=== PATIENT | male | born 1985 | race Two or more races ===

== ENCOUNTER → 2021-07-06 14:55 | Outpatient (BNVA) | payer OTHER, SELFPAY | PROVIDERS: PCP Internal Medicine; Visit Provider Internal Medicine | DX: K62.82 Dysplasia of anus (principal); J45.909 Unspecified asthma, uncomplicated; B20 Human immunodeficiency virus [HIV] disease; Z71.6 Tobacco abuse counseling | CPT/HCPCS: 99202 ==

== ENCOUNTER 2021-07-06 15:39 | Inpatient (IN) | payer OTHER, SELFPAY ==
--- NOTE | ~2021-07-06 | XR_ITS ---
EXAMINATION: XR CHEST CLINICAL INFORMATION: Chest pain COMPARISON: None TECHNIQUE: Frontal view of the chest was obtained. FINDINGS: No significant abnormality is noted involving the heart, lungs, mediastinum, bony thorax or soft tissues. Artifacts from braided hair are noted overlying the left supraclavicular fossa this is felt not to represent subcutaneous emphysema. XR/XR chest 1V IMPRESSION: No acute intrathoracic disease
--- NOTE | ~2021-07-06 | US_ITS ---
EXAMINATION: US VENOUS ULTRASOUND WITH DOPPLER LOWER EXTREMITY, BILATERAL CLINICAL INFORMATION: Positive d-dimer COMPARISON: None TECHNIQUE: Ultrasound of the deep veins is performed from the hip to the calf with compression sonography and color and pulse Doppler assessment. Spectral analysis with color-flow imaging is performed. FINDINGS: RIGHT: There is normal venous compression and respiratory variation and augmented flow. The visualized common femoral vein, superficial femoral vein, profunda femoral vein, popliteal vein, and the trifurcation region shows no evidence of deep venous thrombosis. There is no significant popliteal fossa cyst. LEFT: There is normal venous compression and respiratory variation and augmented flow. The visualized common femoral vein, superficial femoral vein, profunda femoral vein, popliteal vein, and the trifurcation region shows no evidence of deep venous thrombosis. There is no significant popliteal fossa cyst. If the patient's symptoms persist, followup ultrasound in 5 days 7 days might be of value to exclude proximal propagation from a non-visualized calf vein. US/US venous duplex LE BI IMPRESSION: No DVT demonstrated in the bilateral lower extremity.
--- NOTE | ~2021-07-06 | CT_ITS ---
EXAMINATION: CTA CHEST PE STUDY CLINICAL INFORMATION: ob/ cp/ elevated ddimer COMPARISON: Chest x-ray today TECHNIQUE: Prior to contrast administration, noncontrast localization images were obtained. After the administration of 70 mL of Omnipaque 350 IV contrast, contiguous thin slice helical images were obtained through the thorax. Reformatted MIP images in the coronal and sagittal planes were obtained at the acquisition workstation. This CT examination was performed using dose optimization techniques as appropriate, variously including the following: *Automated exposure control *Adjustment of mA and/or kV according to patient size (this includes techniques or standardized protocols for targeted exams where dose is matched to indication/reason for exam; i.e. extremities or head) *Use of iterative reconstruction technique DLP: 296 mGy-cm. FINDINGS: The bolus timing on this study was acceptable for visualization of the pulmonary arterial tree. There is a focal segmental and subsegmental filling defect within the medial right upper lobe with smaller subsegmental filling defects seen in the contralateral left lower lobe pulmonary artery branches. Small pulmonary emboli would be suspected with this appearance. Findings detail at the bases is obscured by respiratory motion artifact. Degraded by respiratory motion at the bases but there is minimal dependent basilar atelectasis. Subtle peripheral airspace disease in the lateral left base and in the anterior aspect of the right upper lobe in the region of the pulmonary emboli. I'm uncertain if this represents underlying areas of small peripheral infarction. No abnormal pulmonary nodules or masses are appreciated. No significant hilar or mediastinal adenopathy. There is no evidence of pleural effusion or pneumothorax. The heart is normal in size. No evidence of ventricular septal bowing or right heart strain. Great vessels are normal. Otherwise the mediastinum is unremarkable. There is no pericardial effusion or pericardial thickening. Limited evaluation of the upper abdominal viscera is unremarkable. CT/CT angio chest PE protocol IMPRESSION: Filling defects within the segmental and subsegmental branches of the right upper lobe as well as subsegmental branches of the left lower lobe with associated airspace changes suggesting pulmonary emboli. The airspace disease in these regions could be due to infection, inflammation or even areas of infarction. VTE: Positive This critical result was discussed with SAMMY Rudolph at 07/06/2021 7:30 PM and it was ascertained that the content and urgency of the report was understood at the time of direct communication.
[2021-07-06 17:03] VITALS: BP 118/85; PULSE 93; RESP 22; TEMP 36.9; O2SAT 98; BMI 23.3
--- NOTE | 2021-07-06 17:29 | ED_ITS ---
HPI - Chest Pain General Chief Complaint: Chest Pain Stated Complaint: sob Time Seen by Provider: 07/06/21 17:29 Source: patient Mode of arrival: ambulatory History of Present Illness HPI narrative: 35-year-old male who reports history of HIV currently on therapy, history of bilateral knee surgery, status post colonoscopy x2 for colon polyps thought to be cancerous he had these removed also status post gastric surgery secondary to gastric ulcers 3 weeks ago who presents with complaint of 2 days of stabbing like chest pain on left side and unable to take a deep breath in. States pain sort of started out of nowhere and has progressively gotten worse. He denies any fever or shortness of breath. MD complaint: chest pain Onset (ago): day(s) Prior episodes: No Relieving factors: nothing Treatment prior to arrival: none Risk Factors Coronary artery disease risk factors: family history of CAD before age 50 Related Data Home Medications Medication Instructions Recorded Confirmed albuterol sulfate 90 mcg/actuation 1 puff PO QID PRN 07/06/21 07/06/21 aerosol inhaler (ProAir HFA) betamethasone dipropionate 0.05 % 1 appl TOPICAL BID PRN 07/06/21 07/06/21 topical cream bictegravir 50 mg-emtricitabine 1 tab PO DAILY 07/06/21 07/06/21 200 mg-tenofovir alafenam 25 mg tablet (Biktarvy) fluoxetine 20 mg capsule 2 cap PO QAM 07/06/21 07/06/21 Allergies Allergy/AdvReac Type Severity Reaction Status Date / Time No Known Allergies Allergy Verified 07/06/21 17:29 Review of Systems Review of Systems: Constitutional: No Weight loss, No Fever, No Chills, No Night Sweats, No Fatigue, No Malaise ENT/Mouth: No Hearing loss, No Ear Pain, No Nasal Congestion, No Sinus Pain, No Hoarseness, No sore throat, No Rhinorrhea, No Swallowing Difficulty Eyes: No Eye Pain, No Swelling, No Redness, No Foreign Body, No Discharge, No Vision Changes Cardiovascular: + Chest Pain, No SOB, No Dyspnea on Exertion, No Orthopnea, No Edema, No Palpitations Respiratory: No Cough, No Sputum, No Wheezing, No Smoke Exposure, No Dyspnea Gastrointestinal: No Nausea, No Vomiting, No Diarrhea, No Constipation, No abdominal Pain, No Hematochezia, No Melena Genitourinary: no irregular bleeding, No Dysuria, No Urinary Frequency, No Hematuria, No Urinary Incontinence, No Urgency, No Flank Pain, No Urinary Flow Changes, No Hesitancy Musculoskeletal: No joint pain, No Myalgias, No Joint Swelling Skin: No Skin Lesions, No rash Neuro: No Weakness, No Numbness, No Paresthesias, No Loss of Consciousness, No Dizziness, No Headache Psych: No Social Issues Heme/Lymph: No Bruising, No Bleeding,No Lymphadenopathy Endocrine: No Polyuria, No Polydipsia, No Temperature Intolerance Yes all other systems are reviewed and are negative [facility] Past Medical History Medical History Colon cancer Colon polyps GERD (gastroesophageal reflux disease) HIV (human immunodeficiency virus infection) Social History Social History Household Members: Family Housing: House Do you presently have visiting nurse or other home services: No Patient Tobacco Use Status: Current everyday Tobacco user Tobacco use type: Cigarette Cigarette Packs Per Day: 0.5 Cigarettes Per Day: 10.0 Use of substances other than those prescribed or required for medical reasons: Yes Substance Use Type: Marijuana Substance Use Frequency: Daily Last Used Substance: Hours (ago) Last Used Substance Other:: this morning Currently Displaying Signs/Symptoms of Drug Intoxication Withdrawal: No Have you been hit, kicked, punched, or otherwise hurt by someone within the past year? If so, by whom?: No Do you feel safe in your current relationship?: No Current Relationship Is there a partner from a previous relationship who is making you feel unsafe now?: No Are you made to feel afraid or neglected: No Advance Directives: No Advance Directives Information Provided: No Do you have thoughts of harming others: None Do you have a plan to hurt others: No Plan Recently lost weight without trying: No Eating poorly because of decreased appetite: Yes Nutrition Risks: No Nutritional Risk Physical Exam Vital Signs: Vital Signs: Last Vital Signs Temp 98.3 F 07/06/21 23:36 Pulse 77 07/06/21 23:36 Resp 18 07/06/21 23:36 BP 123/81 07/06/21 23:36 Pulse Ox 97 07/06/21 23:36 Body Mass Index 23.3 Const: General: cooperative and healthy appearing; No acute distress or intoxicated appearing Nutritional Appearance: average body habitus Orientation/consciousness: patient oriented x3 HENMT: Head: Yes normal to inspection Ears: hearing grossly normal bilaterally Eyes: General: appearance normal, both eyes and all related structures Visual Castelan: normal visual castelan by confrontation Neck: Neck: Yes normal visual inspection, No positive Brudzinski's sign, No positive Kernig's sign and No tender Thyroid: Thyroid normal Chest: Chest palpation & inspection: normal inspection of the chest Resp: Effort & Inspection: normal respiratory effort Cardio: Jugular venous distension: no JVD Rate: regular rate Rhythm: regular rhythm Heart sounds: S1 normal heart sound present and S2 normal heart sound present GI: Inspection: Yes normal to inspection Percussion: Yes normal to percussion Auscultation: normal bowel sounds : General: Yes no CVA tenderness Back/Spine/Pelvis: Back: no CVA tenderness Skin: General skin exam: no rashes or lesions noted Neuro: General: patient oriented x3 Extrem: General: Yes normal to inspection Course Reevaluation(s) Reevaluation #1: Appears relatively uncomfortable pain reproducible palpation to the left pectoralis muscle region however status post surgery. D-dimer slightly bumped the CTA done of the chest rule out PE shows Filling defects within the segmental and subsegmental branches of the right upper lobe as well as subsegmental branches of the left lower lobe with associated airspace changes suggesting pulmonary emboli. The airspace disease in these regions could be due to infection, inflammation or even areas of infarction. ? MDM - Chest Pain Medical Records Data Attestation: I reviewed the patient's medical records. Lab Data Attestation: I reviewed the patient's lab results. Result diagrams: 07/06/21 18:05 07/06/21 18:04 Labs: Lab Results 07/06/21 07/06/21 07/06/21 Range/Units 18:04 18:04 18:04 WBC (4.8-10.8) X10*3/uL RBC (4.60-5.80) X10*6/uL Hgb (14.0-18.0) g/dl Hct (42-52) % MCV (80-98) fL MCH (27.0-33.0) pg MCHC (31.0-36.0) g/dl RDW (11.0-16.0) % Plt Count (160-400) X10*3/uL MPV (9.4-12.4) fL Immature Gran % (Auto) (0.0-0.4) % Neut % (Auto) (45-73) % Lymph % (Auto) (20-40) % [place] % (Auto) (2-11) % Eos % (Auto) (0-4) % Baso % (Auto) (0-2) % Lymph # (Auto) (1.2-4.9) X10*3/uL [place] # (Auto) (0.1-1.2) X10*3/uL Eos # (Auto) (0.0-0.4) X10*3/uL Baso # (Auto) (0.0-0.2) X10*3/uL Abs Immat Gran (auto) (0.00-0.03) X10*3/uL Absolute Neuts (auto) (2.0-8.3) X10*3/uL Absolute Nucleated RBC (0.0-0.012) X10*3/uL Nucleated RBC % (auto) (0.0-0.2) /100WBC Smear Tech's Comments PT 13.9 H (9.9-13.0) SEC INR 1.2 H (0.9-1.1) APTT 36.7 (24.1-38.0) SEC D-Dimer 356 NG/ML Sodium 136 (135-145) mmol/L Potassium 4.1 (3.3-5.1) mmol/L Chloride 102 (96-108) mmol/L Carbon Dioxide 21 L (22-29) mmol/L Anion Gap 17 (12-20) BUN 10 (9-16) mg/dL Creatinine 0.84 (0.5-1.4) mg/dL Estim Creat Clear Calc 133.4 Estimated GFR > 60 Random Glucose 98 (60-115) mg/dL Calcium 9.9 (8.4-10.2) mg/dL Total Bilirubin 1.4 H (0.0-1.0) mg/dL AST 24 (5-37) U/L ALT 23 (0-40) U/L Alkaline Phosphatase 117 (39-117) U/L Troponin I High Sens (<3.5-35.0) ng/L Total Protein 7.5 (6.5-8.0) g/dL Albumin 4.6 (3.5-5.0) g/dL COVID-19 (HUY) Negative (Negative) COVID-19 Clin Com See Note 07/06/21 07/06/21 Range/Units 18:04 18:05 WBC 17.8 H (4.8-10.8) X10*3/uL RBC 5.82 H (4.60-5.80) X10*6/uL Hgb 19.0 H (14.0-18.0) g/dl Hct 56.2 H (42-52) % MCV 96.6 (80-98) fL MCH 32.6 (27.0-33.0) pg MCHC 33.8 (31.0-36.0) g/dl RDW 13.6 (11.0-16.0) % Plt Count 186 (160-400) X10*3/uL MPV 10.6 (9.4-12.4) fL Immature Gran % (Auto) 0.5 H (0.0-0.4) % Neut % (Auto) 81.1 H (45-73) % Lymph % (Auto) 8.6 L (20-40) % [place] % (Auto) 9.5 (2-11) % Eos % (Auto) 0.1 (0-4) % Baso % (Auto) 0.2 (0-2) % Lymph # (Auto) 1.5 (1.2-4.9) X10*3/uL [place] # (Auto) 1.7 H (0.1-1.2) X10*3/uL Eos # (Auto) 0.0 (0.0-0.4) X10*3/uL Baso # (Auto) 0.0 (0.0-0.2) X10*3/uL Abs Immat Gran (auto) 0.09 H (0.00-0.03) X10*3/uL Absolute Neuts (auto) 14.5 H (2.0-8.3) X10*3/uL Absolute Nucleated RBC 0.000 (0.0-0.012) X10*3/uL Nucleated RBC % (auto) 0.0 (0.0-0.2) /100WBC Smear Tech's Comments VERIFIED PT (9.9-13.0) SEC INR (0.9-1.1) APTT (24.1-38.0) SEC D-Dimer NG/ML Sodium (135-145) mmol/L Potassium (3.3-5.1) mmol/L Chloride (96-108) mmol/L Carbon Dioxide (22-29) mmol/L Anion Gap (12-20) BUN (9-16) mg/dL Creatinine (0.5-1.4) mg/dL Estim Creat Clear Calc Estimated GFR Random Glucose (60-115) mg/dL Calcium (8.4-10.2) mg/dL Total Bilirubin (0.0-1.0) mg/dL AST (5-37) U/L ALT (0-40) U/L Alkaline Phosphatase (39-117) U/L Troponin I High Sens < 3.5 (<3.5-35.0) ng/L Total Protein (6.5-8.0) g/dL Albumin (3.5-5.0) g/dL COVID-19 (HUY) (Negative) COVID-19 Clin Com Imaging Data Chest CT: Radiologist's impression: [place] [id number] CT Scan Report Signed Patient: Romain Olguin MR#: [id number] : 1985 Acct:[id number] Age/Sex: 35 / M ADM Date: 07/06/21 Loc: .ED Attending Dr: Ordering Physician: Kevon Carvalho NP Date of Service: 07/06/21 Procedure(s): CT angio chest PE protocol Accession Number(s): [id number] cc: Kevon Carvalho NP~ EXAMINATION: CTA CHEST PE STUDY CLINICAL INFORMATION: ob/ cp/ elevated ddimer COMPARISON: Chest x-ray today? TECHNIQUE: Prior to contrast administration, noncontrast localization images were obtained. After the administration of 70 mL of Omnipaque 350 IV contrast, contiguous thin slice helical images were obtained through the thorax. Reformatted MIP images in the coronal and sagittal planes were obtained at the acquisition workstation. This CT examination was performed using dose optimization techniques as appropriate, variously including the following: *Automated exposure control *Adjustment of mA and/or kV according to patient size (this includes techniques or standardized protocols for targeted exams where dose is matched to indication/reason for exam; i.e. extremities or head) *Use of iterative reconstruction technique DLP: 296 mGy-cm. FINDINGS: The bolus timing on this study was acceptable for visualization of the pulmonary arterial tree. There is a focal segmental and subsegmental filling defect within the medial right upper lobe with smaller subsegmental filling defects seen in the contralateral left lower lobe pulmonary artery branches. Small pulmonary emboli would be suspected with this appearance. Findings detail at the bases is obscured by respiratory motion artifact. Degraded by respiratory motion at the bases but there is minimal dependent basilar atelectasis. Subtle peripheral airspace disease in the lateral left base and in the anterior aspect of the right upper lobe in the region of the pulmonary emboli. I'm uncertain if this represents underlying areas of small peripheral infarction. No abnormal pulmonary nodules or masses are appreciated. No significant hilar or mediastinal adenopathy.? There is no evidence of pleural effusion or pneumothorax. The heart is normal in size. No evidence of ventricular septal bowing or right heart strain. Great vessels are normal. Otherwise the mediastinum is unremarkable.? There is no pericardial effusion or pericardial thickening. Limited evaluation of the upper abdominal viscera is unremarkable. CT/CT angio chest PE protocol IMPRESSION: Filling defects within the segmental and subsegmental branches of the right upper lobe as well as subsegmental branches of the left lower lobe with associated airspace changes suggesting pulmonary emboli. The airspace disease in these regions could be due to infection, inflammation or even areas of infarction. ? VTE: Positive ? This critical result was discussed with SAMMY Rudolph at 07/06/2021 7:30 PM and it was ascertained that the content and urgency of the report was understood at the time of direct communication. Dictated By: KEVIN CHILDERS MD Signed By: <Electronically signed by KEVIN CHILDERS MD in OV> 07/06/211930 DD/ 39 TD/TT:? Critical Care Specialist: OLE ECG Data ECG #1: Interpretation: Normal sinus rhythm Rate 90 MS interval 152 QRS 86 QT/QTC 360/[address] segment changes Discharge Plan Discharge Clinical Impression: Pulmonary embolism Patient Disposition: Admitted As Inpatient Interventions: Admission Worksheet (ED) Last Done: 07/06/21 22:43 Discharge Date/Time: 07/06/21 22:45
--- NOTE | 2021-07-06 17:29 | ECG_ITS ---
Test Reason : CHEST PAIN Blood Pressure : / mmHG Vent. Rate : 090 BPM Atrial Rate : 090 BPM P-R Int : 152 ms QRS Dur : 086 ms QT Int : 360 ms P-R-T Axes : 074 016 041 degrees QTc Int : 440 ms Normal sinus rhythm Septal infarct , age undetermined Abnormal ECG No previous ECGs available Referred By: Kevon Carvalho Electronically Signed By:HAIDER HESS
[2021-07-06] MEDS: 0.9 % Sodium Chloride 1,000 ML 999 ML IV (17:35)
[2021-07-06 18:26] LABS: INTERNATIONAL NORM RATIO 1.2 (0.9-1.1); Prothrombin Time 13.9 SEC (9.9-13.0)
[2021-07-06 18:28] LABS: Partial Thromboplastin Time 36.7 SEC (24.1-38.0)
[2021-07-06 18:29] LABS: Basophils Percent Auto 0.2 % (0-2); Eosinophils Percent Auto 0.1 % (0-4); Imm Gran Abs Auto 0.09 X10*3/uL (0.00-0.03); Imm Gran Pct Auto 0.5 % (0.0-0.4); Lymphocytes Absolute Auto 1.5 X10*3/uL (1.2-4.9); Lymphocytes Percent Auto 8.6 % (20-40); MANUAL DIFF FLAG SCAN; Mean Corpuscular HGB Conc 33.8 g/dl (31.0-36.0); Mean Corpuscular Hemoglobin 32.6 pg (27.0-33.0); Mean Corpuscular Volume 96.6 fL (80-98); Mean Platelet Volume 10.6 fL (9.4-12.4); Monocytes Absolute Auto 1.7 X10*3/uL (0.1-1.2); Monocytes Percent Auto 9.5 % (2-11); Neutrophils Absolute Auto 14.5 X10*3/uL (2.0-8.3); Neutrophils Percent Auto 81.1 % (45-73); Platelet Count 186 X10*3/uL (160-400); Red Blood Count 5.82 X10*6/uL (4.60-5.80); Red Cell Distribution Width 13.6 % (11.0-16.0); SCAN SMEAR FLAG 1; White Blood Count 17.8 X10*3/uL (4.8-10.8)
[2021-07-06 18:29] LABS: D Dimer 356 NG/ML
[2021-07-06 18:30] LABS: Hematocrit 56.2 % (42-52)
[2021-07-06 18:34] LABS: Alanine Aminotransferase 23 U/L (0-40); Albumin Level 4.6 g/dL (3.5-5.0); Alkaline Phosphatase 117 U/L (39-117); Anion Gap 17 (12-20); Aspartate Amino Transferase 24 U/L (5-37); Bilirubin Total 1.4 mg/dL (0.0-1.0); Blood Urea Nitrogen 10 mg/dL (9-16); Calcium 9.9 mg/dL (8.4-10.2); Carbon Dioxide 21 mmol/L (22-29); Chloride 102 mmol/L (96-108); Creatinine Clr Calc Pharmacy 133.4; Estimated Glomerular Filt Rate > 60; Glucose Random 98 mg/dL (60-115); Potassium 4.1 mmol/L (3.3-5.1); Sodium 136 mmol/L (135-145); Total Protein 7.5 g/dL (6.5-8.0)
[2021-07-06 18:38] LABS: Troponin-I High Sensitivity < 3.5 ng/L (<3.5-35.0)
[2021-07-06 18:47] LABS: SLIDE REVIEW VERIFIED
[2021-07-06 18:50] LABS: COVID-19 Test Negative (Negative)
[2021-07-06] MEDS: iohexoL 350 MG/ML 100 ML INFUS..BTL IV (19:12)
[2021-07-06 19:28] VITALS: BP 122/80; PULSE 85; RESP 20; TEMP 37.3; O2SAT 99
[2021-07-06] MEDS: ondansetron HCL 4 MG/2 ML VIAL IVPUSH (19:41)
[2021-07-06] MEDS: Morphine Sulfate 4 MG/ML CARTRIDGE IVPUSH (19:42)
[2021-07-06] MEDS: Heparin Sodium,Porcine/1/2NS 25,000 UNIT/250 ML IV.SOLN 10.92 UNIT IVCONT (20:05)
[2021-07-06] MEDS: Heparin Sodium,Porcine 5,000 UNIT/ML VIAL 6200 UNIT IVPUSH (20:14)
--- NOTE | 2021-07-06 20:18 | PM.IMHP ---
History of Present Illness Date of Service: 07/06/21 Chief Complaint: Chest pain 35-year-old male with a past medical history Of HIV, colon polyps, GERD, recent gastric surgery 3 weeks ago presented to the hospital today with a chief complaint of chest pain. Patient reported the chest pain is noted on the left side chest, nonradiating, associated with difficulty breathing; mentioned the chest pain worsens with deep inspiration; tender to palpate; initially noted on the left lateral side of the chest wall; and today he has chest pain on the right lateral chest wall. Chest pain is sharp in nature. Denies any cough or sputum production. Denies any numbness tingling or focal weakness. Denies any GI or symptoms. Review of all other systems is negative except mentioned above ER course: Per ER team patient EKG was nonischemic, troponin negative, D-dimer positive; CT chest showed evidence of segmental and subsegmental PE but no evidence of right heart strain. Patient was started on heparin drip. Admitted to the hospital for further management. [facility] Medical History (Updated 07/06/21 @ 22:43 by Hedy Badillo) Colon cancer Colon polyps GERD (gastroesophageal reflux disease) HIV (human immunodeficiency virus infection) Pertinent family history: Reviewed Social History Advance Directives: No Advance Directives Information Provided: No Meds Allergies Allergy/AdvReac Type Severity Reaction Status Date / Time No Known Allergies Allergy Verified 07/06/21 17:29 Active Medications: Current Medications Heparin Sodium (Porcine) (Heparin Sodium,Porcine 5,000 Unit/Ml Vial) 3,100 unit 40 unit/kg (3100 unit) IVPUSH PROTOCOL BOLUS PRN; Protocol PRN Reason: 40 unit/kg - Heparin Protocol Heparin Sodium (Porcine) (Heparin Sodium,Porcine 5,000 Unit/Ml Vial) 6,200 unit 80 unit/kg (6200 unit) IVPUSH PROTOCOL BOLUS PRN; Protocol PRN Reason: 80 unit/kg - Heparin Protocol Heparin Sodium/Sodium Chloride () 25,000 unit in 250 mls @ 0 mls/hr IVCONT .Q0M [facility]; Protocol Last Admin: 07/06/21 20:05 Dose: 14 units/kg/hr, 10.92 mls/hr Documented by: Ceftriaxone Sodium 1 gm/ (Sodium Chloride) 50 mls @ 100 mls/hr IV ONCE ONE Stop: 07/06/21 20:27 Azithromycin 500 mg/ Sodium (Chloride) 250 mls @ 125 mls/hr IV ONCE ONE Stop: 07/06/21 21:57 Home Medications Medication Instructions Recorded Confirmed Last Taken Type albuterol sulfate 90 mcg/actuation 1 puff PO QID PRN 07/06/21 07/06/21 Unknown History aerosol inhaler (ProAir HFA) betamethasone dipropionate 0.05 % 1 appl TOPICAL BID PRN 07/06/21 07/06/21 Unknown History topical cream bictegravir 50 mg-emtricitabine 1 tab PO DAILY 07/06/21 07/06/21 07/05/21 History 200 mg-tenofovir alafenam 25 mg tablet (Biktarvy) fluoxetine 20 mg capsule 2 cap PO QAM 07/06/21 07/06/21 07/05/21 History Physical Exam Vital Signs and Narrative: Vital Signs: Last Vital Signs Temp 99.2 F 07/06/21 19:28 Pulse 85 07/06/21 19:28 Resp 20 07/06/21 19:28 BP 122/80 07/06/21 19:28 Pulse Ox 99 07/06/21 19:28 Body Mass Index 23.3 Gen: Appears be in no acute distress HEENT: NCAT, Moist mucosa. Pulmonary: Vesicular breath sounds, fair air entry CVS: Normal S1-S2 Abdomen: BS+, Soft, Nontender Extremities: Warm well perfused Neuro: Alert and awake. Results Labs CBC and Chem 7: 07/06/21 18:05 07/06/21 18:04 Labs: Laboratory Results - last 24 hr 07/06/21 07/06/21 07/06/21 18:04 18:04 18:04 MCV MCH MCHC RDW Plt Count MPV Immature Gran % (Auto) Neut % (Auto) Lymph % (Auto) [place] % (Auto) Eos % (Auto) Baso % (Auto) Lymph # (Auto) [place] # (Auto) Eos # (Auto) Baso # (Auto) Abs Immat Gran (auto) Absolute Neuts (auto) Absolute Nucleated RBC Nucleated RBC % (auto) Smear Tech's Comments PT 13.9 H INR 1.2 H APTT 36.7 D-Dimer 356 Anion Gap 17 Estim Creat Clear Calc 133.4 Estimated GFR > 60 Random Glucose 98 Calcium 9.9 Total Bilirubin 1.4 H AST 24 ALT 23 Alkaline Phosphatase 117 Troponin I High Sens Total Protein 7.5 Albumin 4.6 COVID-19 (HUY) Negative COVID-19 Clin Com See Note 07/06/21 07/06/21 18:04 18:05 MCV 96.6 MCH 32.6 MCHC 33.8 RDW 13.6 Plt Count 186 MPV 10.6 Immature Gran % (Auto) 0.5 H Neut % (Auto) 81.1 H Lymph % (Auto) 8.6 L [place] % (Auto) 9.5 Eos % (Auto) 0.1 Baso % (Auto) 0.2 Lymph # (Auto) 1.5 [place] # (Auto) 1.7 H Eos # (Auto) 0.0 Baso # (Auto) 0.0 Abs Immat Gran (auto) 0.09 H Absolute Neuts (auto) 14.5 H Absolute Nucleated RBC 0.000 Nucleated RBC % (auto) 0.0 Smear Tech's Comments VERIFIED PT INR APTT D-Dimer Anion Gap Estim Creat Clear Calc Estimated GFR Random Glucose Calcium Total Bilirubin AST ALT Alkaline Phosphatase Troponin I High Sens < 3.5 Total Protein Albumin COVID-19 (HUY) COVID-19 Clin Com Imaging Radiologist's Impressions: Impressions Chest X-Ray 07/06/21 17:30 IMPRESSION: No acute intrathoracic disease Chest CTA 07/06/21 18:40 IMPRESSION: Filling defects within the segmental and subsegmental branches of the right upper lobe as well as subsegmental branches of the left lower lobe with associated airspace changes suggesting pulmonary emboli. The airspace disease in these regions could be due to infection, inflammation or even areas of infarction. VTE: Positive This critical result was discussed with SAMMY Rudolph at 07/06/2021 7:30 PM and it was ascertained that the content and urgency of the report was understood at the time of direct communication. Assessment and Plan (1) Pulmonary emboli: Status: Acute (2) GERD (gastroesophageal reflux disease): Status: Acute (3) HIV (human immunodeficiency virus infection): Status: Acute 35-year-old male with a past medical history Of HIV, colon polyps, GERD, recent gastric surgery 3 weeks ago presented to the hospital today with a chief complaint of chest pain. Found to have pulmonary embolism. Admitted for further management. Pulmonary embolism: Continue heparin drip. Currently vitals are stable, troponin negative. CT scan showed no evidence of right heart strain. Will obtain echocardiogram Will obtain venous duplex Likely provoked given recent surgery. ? Pneumonia: CT scan showed possible airspace disease. Empirically continue ceftriaxone and azithromycin. History of gastric ulcer/recent gastric surgery: Given concerns for high-risk for bleeding and patient requiring heparin drip. Will consult Gastroenterology Monitor H&H closely Hx of HIV: Continue home medications. GERD: Pantoprazole History of anxiety/depression: Continue home medications Code status: DNR/DNI. Patient wants to be DNR/DNI despite me asking multiple times. Witnessed by the SALMA Restrepo at bedside Quality Stroke Does the patient have a stroke diagnosis?: No VTE Prior VTE?: Yes Approximate Date of Prior VTE: 07/06/21 VTE Risk Level:: Medical - moderate - high VTE Device Contraindication: Treatment Not Indicated VTE Drug Contraindication: N/A - Med Ordered
[2021-07-06] MEDS: cefTRIAXone sodium 1 GM in 0.9 % Sodium Chloride 50 ML IV (21:15)
--- NOTE | 2021-07-06 21:20 | PHA.MEDREC ---
Pharmacy Consult ? Medication Reconciliation Pharmacy has completed the medication reconciliation. There are no remarkable issues for provider's attention. Reports he need more refills for albuterol. Carol Ann Robles, PharmD
[2021-07-06 21:34] VITALS: RESP 18
[2021-07-06] MEDS: Azithromycin 500 MG in 0.9 % Sodium Chloride 250 ML 125 MG IV (21:34)
[2021-07-06] MEDS: HYDROmorphone HCl 0.5 MG/0.5 ML SYRINGE IVPUSH (21:34)
[2021-07-06 21:47] VITALS: BP 123/82; PULSE 86; RESP 18; TEMP 36.9; O2SAT 99
--- NOTE | 2021-07-06 22:11 | PC.NURSE ---
Call x1 to SALMA price, waiting for call back.
[2021-07-06 22:26] LABS: Amphetamine Screen Urine Not Detected (Not Detect); Barbiturates, Urine Not Detected (Not Detect); Benzodiazepines Screen Urine Not Detected (Not Detect); Cannabinoid Screen Urine POSITIVE (Not Detect); Cocaine Screen Urine Not Detected (Not Detect); Fentanyl, urine Not Detected (Not Detect); Opiate Screen Urine POSITIVE (Not Detect); Phencyclidine Screen Urine Not Detected (Not Detect)
--- NOTE | 2021-07-06 22:41 | PC.NURSE ---
Pt remains alert and oriented x4, calm and cooperative. Pt states pain improved slightly with meds given. Pt remains on room air, tele monitor NSR. 2 IV's remains intact and infusing meds at this time. Vitals stable. Report given to SALMA price.
[2021-07-06 22:42] VITALS: BP 124/81; PULSE 84; RESP 18; TEMP 36.9; O2SAT 93
[2021-07-06 23:00] VITALS: BMI 24.7
[2021-07-06] MEDS: Zolpidem Tartrate 5 MG TABLET PO (23:25)
[2021-07-06 23:36] VITALS: BP 123/81; PULSE 77; RESP 18; TEMP 36.8; O2SAT 97
[2021-07-07] VITALS (9 sets, daily range): BP systolic 119–125; BP diastolic 56–80; PULSE 64–74; RESP 18–20; TEMP 36.3–36.7; O2SAT 97–99
[2021-07-07] MEDS: HYDROmorphone HCl 0.5 MG/0.5 ML SYRINGE IVPUSH ×5 (01:36→20:42)
[2021-07-07] MEDS: ondansetron HCL 4 MG/2 ML VIAL IVPUSH (01:37)
[2021-07-07 01:53] LABS: Basophils Percent Auto 0.2 % (0-2); Eosinophils Percent Auto 0.2 % (0-4); Hematocrit 48.6 % (42-52); Hemoglobin 16.4 g/dl (14.0-18.0); Imm Gran Abs Auto 0.07 X10*3/uL (0.00-0.03); Imm Gran Pct Auto 0.5 % (0.0-0.4); Lymphocytes Absolute Auto 2.7 X10*3/uL (1.2-4.9); Lymphocytes Percent Auto 18.4 % (20-40); MANUAL DIFF FLAG SCAN; Mean Corpuscular HGB Conc 33.7 g/dl (31.0-36.0); Mean Corpuscular Hemoglobin 32.5 pg (27.0-33.0); Mean Corpuscular Volume 96.4 fL (80-98); Mean Platelet Volume 10.2 fL (9.4-12.4); Monocytes Absolute Auto 1.8 X10*3/uL (0.1-1.2); Monocytes Percent Auto 12.1 % (2-11); Neutrophils Absolute Auto 10.1 X10*3/uL (2.0-8.3); Neutrophils Percent Auto 68.6 % (45-73); Platelet Count 161 X10*3/uL (160-400); Red Blood Count 5.04 X10*6/uL (4.60-5.80); Red Cell Distribution Width 13.6 % (11.0-16.0); SCAN SMEAR FLAG 1; White Blood Count 14.6 X10*3/uL (4.8-10.8)
[2021-07-07 02:01] LABS: PTT Heparin Drip 66.3 SEC (53-77.9)
[2021-07-07] MEDS: Lidocaine 4 % Patch ADH..PATCH 1 PATCH TRANSDERMA ×2 (03:35→14:13)
[2021-07-07] MEDS: Pantoprazole Sodium 40 MG/10 ML VIAL IVPUSH (06:12)
[2021-07-07 08:16] LABS: Basophils Percent Auto 0.1 % (0-2); Eosinophils Absolute Auto 0.1 X10*3/uL (0.0-0.4); Eosinophils Percent Auto 0.4 % (0-4); Hemoglobin 17.1 g/dl (14.0-18.0); Imm Gran Abs Auto 0.08 X10*3/uL (0.00-0.03); Imm Gran Pct Auto 0.5 % (0.0-0.4); Lymphocytes Absolute Auto 2.2 X10*3/uL (1.2-4.9); Lymphocytes Percent Auto 14.7 % (20-40); MANUAL DIFF FLAG SCAN; Mean Corpuscular HGB Conc 32.9 g/dl (31.0-36.0); Mean Corpuscular Hemoglobin 32.3 pg (27.0-33.0); Mean Corpuscular Volume 98.1 fL (80-98); Mean Platelet Volume 10.5 fL (9.4-12.4); Monocytes Absolute Auto 2.1 X10*3/uL (0.1-1.2); Monocytes Percent Auto 13.4 % (2-11); Neutrophils Absolute Auto 10.8 X10*3/uL (2.0-8.3); Neutrophils Percent Auto 70.9 % (45-73); Platelet Count 152 X10*3/uL (160-400); Red Cell Distribution Width 13.9 % (11.0-16.0); SCAN SMEAR FLAG 1; White Blood Count 15.3 X10*3/uL (4.8-10.8)
[2021-07-07 08:23] LABS: INTERNATIONAL NORM RATIO 1.2 (0.9-1.1); Prothrombin Time 14.2 SEC (9.9-13.0)
[2021-07-07 08:25] LABS: PTT Heparin Drip 53.6 SEC (53-77.9)
[2021-07-07 08:34] LABS: SLIDE REVIEW VERIFIED
[2021-07-07 08:39] LABS: Anion Gap 14 (12-20); Blood Urea Nitrogen 8 mg/dL (9-16); Calcium 8.7 mg/dL (8.4-10.2); Carbon Dioxide 24 mmol/L (22-29); Chloride 103 mmol/L (96-108); Creatinine Clr Calc Pharmacy 141.8; Estimated Glomerular Filt Rate > 60; Glucose Random 82 mg/dL (60-115); Magnesium 1.9 mg/dL (1.6-2.6); Potassium 3.8 mmol/L (3.3-5.1); Sodium 137 mmol/L (135-145)
[2021-07-07] MEDS: FLUoxetine HCl 20 MG CAPSULE 40 MG PO (09:19)
[2021-07-07] MEDS: 0.9 % Sodium Chloride Flush 3 ML SYRINGE IVFLUSH ×3 (09:21→20:41)
[2021-07-07] MEDS: diphenhydrAMINE HCL 25 MG TABLET PO ×3 (09:48→22:18)
--- NOTE | 2021-07-07 09:48 | MHC.CM.PN ---
met with pt who is indepdent cm interventionis not indicated at this time..pt has own transport home
[2021-07-07] MEDS: oxyCODONE HCl Immed Release 5 MG TABLET 10 MG PO ×3 (09:49→22:17)
--- NOTE | 2021-07-07 10:00 | CA_ITS ---
Transthoracic Echocardiogram Patient (Last, First, Middle): Romain Olguin, Gender: Male Date of : 1985 Age: 35 Procedure Date: 07/07/2021 Procedure Type: Transthoracic Echocardiogram Location: [facility] [place] Height: 182.88 cm Weight: 82.56 kg BSA: 2.05 m2 Heart Rate: bpm BP: 119 / 79 mmHg Senior Director Marketing: Referring MD: Blas Osorio MD Symptoms: PE; ?Rt heart strain Study Quality: Good ECG Rhythm: Sinus Conclusions: - The left ventricular systolic function is normal. The calculated ejection fraction is 58% by biplane method. - No obvious valvular pathology seen on this study. Findings Left Ventricle Normal left ventricular cavity size. There is normal left ventricular wall thickness. The left ventricular systolic function is normal. The calculated ejection fraction is 58% by biplane method. There is no evidence of regional wall motion abnormalities. Diastolic function is normal for age. Right Ventricle Normal right ventricular cavity size and systolic function. Atria Both atria are normal in size. Aortic Valve The aortic valve was not well visualized. There is no aortic valve stenosis. There is no aortic valve regurgitation. Mitral Valve The mitral valve appears normal. There is trace mitral valve regurgitation. There is no mitral valve stenosis. Pulmonic Valve The pulmonic valve was not well visualized. Tricuspid Valve Normal tricuspid valve structure. There is no tricuspid valve regurgitation. The pulmonary artery systolic pressure is normal. Great Vessels The aortic annulus, sinuses of valsalva, and asc aorta are normal in size. Venous The inferior vena cava is normal in size and collapses greater than 50% with inspiration. Pericardium/Pleural There is no evidence of pericardial effusion. Prior Study Comparison No prior study available for comparison. Recommendations, Care & Conclusions No obvious valvular pathology seen on this study. Measurements 2D Linear Measurements IVSd: 1.18 0.6-0.9/0.6-1.0 cm LVIDd: 4.36 3.9-5.3/4.2-5.9 cm LVIDd Index: 2.13 2.4-3.2/2.2-3.1 cm/m2 LVIDs: 2.61 2.0-3.6 cm LVPWd: 1.16 0.7-1.1 cm Ao Root: 3.10 2.1-3.5 cm LA Diam: 4.30 2.7-3.8/3.0-4.0 cm LAIDs Index: 2.10 1.5-2.3 cm/m2 LV Mass: 226.60 67-162/88-224 g LV Mass Index: 110.53 43-95/49-115 g/m2 LVOT Diam: 2.20 3.0+(-)1.3 cm 2D Systolic Function EF 4C: 61.40 >55% EF 2C: 55.80 >55% EF BiP: 57.90 >55% Mitral Valve MV Pk E: 0.78 MV PK A: 0.45 MV Decel Time: 239.00 E/A: 1.70 E'Lateral: 15.70 E'Medial: 11.30 E/E' Med: 6.90 E/E' Lat: 5.00 PHT: 70.00 MVA PHT: 3.14 Decel Mccormick: 3.29 Aortic Valve AoV Pk Rafael: 1.40 AoV Mn Rafael: 0.92 AoV VTI: 0.29 AoV Pk Grad: 8.00 Aov Mn Grad: 4.00 KALEE Cont.VTI: 2.56 LVOT LVOT Pk Rafael: 1.01 LVOT Mn Rafael: 0.62 LVOT VTI: 0.19 LVOT Pk Grad: 4.00 LVOT Mn Grad: 2.00 LVOT Diam: 2.20 LVOT Area: 3.80 Diastolic Function MV Pk E: 0.78 MV Pk A: 0.45 E/A: 1.70 E'Medial: 11.30 E/E' Med: 6.90 E' Laterial: 15.70 E/E' Lat: 5.00 Right Ventricle TAPSE (mm): 23.00 TVS' Rafael: 11.00 Tricuspid Valve TR Pk Rafael: 1.62 TR Pk Grad: 10.00 Great Vessels Aorta Ao Root-2D: 3.10 2.0-3.7 cm Ao Asc: 3.10 2.1-3.4 cm Pulmonary Valve PV Pk Rafael: 1.09 Peak PV Grad: 5.00 Updated in Other Vendor System with Status of Final Romario Whitlock MD electronically signed on 07/07/2021 4:01:35 PM with status of Final
--- NOTE | 2021-07-07 12:14 | P.PNIM_ITS ---
Subjective Subjective Date of Service: 07/07/21 Interval History: 35-year-old male with history of undetectable HIV, gastroesophageal reflux disease status post Gogo fundoplasty 3 weeks ago presents with left lateral chest pain that is worse with deep breath. ER evaluation consistent with pulmonary emboli. Started on heparin drip and admitted to floor. Overnight breathing remained stable along with sats however pain is poorly controlled Review of Systems Admits to pleuritic chest pain Denies shortness of breath Denies nausea vomiting diarrhea Physical Exam Vital Signs: Vital Signs: Last Vital Signs Temp 97.8 F 07/07/21 11:22 Pulse 64 07/07/21 11:22 Resp 18 07/07/21 11:22 BP 122/74 07/07/21 11:22 Pulse Ox 97 07/07/21 11:22 Body Mass Index 24.7 Const: Other: Awake alert uncomfortable. No acute distress HENMT: Other: Oral pharynx clear; membranes moist Resp: Other: Diminished throughout secondary to splinting; scant expiratory wheezes heard through the lower lung stacy Cardio: Other: No S4 positive S1-S2 no S3 without murmurs of gallops GI: Other: Soft nontender nondistended with normoactive bowel sounds. There is no appreciable hepatosplenomegaly Neuro: Other: Cranial nerves 2-12 grossly intact as tested. Motor is 5/5 all extremity sensation is tacked cognition is clear Extrem: Other: No clubbing cyanosis or edema Objective Data Active Medications Acetaminophen (Acetaminophen 325 Mg Tablet) 650 mg PO Q6H PRN PRN Reason: Pain, Mild (Pain Scale 1-3) Albuterol Sulfate (Albuterol Sulfate 90 Mcg 8 Gm Inhaler) 1 puff INHALE QID PRN PRN Reason: wheezing Azithromycin (Azithromycin 500 Mg Tablet) 500 mg PO Q24H BALDO Bictegravir/Emtricitabine/Tenofovir (Bictegrav/Emtricit/Tenofov Ala 1 Tab Tablet) 1 tab PO DAILY BALDO Last Admin: 07/07/21 09:19 Dose: 1 tab Documented by: CECE Diphenhydramine HCl (Diphenhydramine Hcl 25 Mg Tablet) 25 mg PO Q4H PRN PRN Reason: Itching Last Admin: 07/07/21 09:48 Dose: 25 mg Documented by: CECE Fluoxetine HCl (Fluoxetine Hcl 20 Mg Capsule) 40 mg PO DAILY [facility] Last Admin: 07/07/21 09:19 Dose: 40 mg Documented by: CECE Heparin Sodium (Porcine) (Heparin Sodium,Porcine 5,000 Unit/Ml Vial) 3,100 unit 40 unit/kg (3100 unit) IVPUSH PROTOCOL BOLUS PRN; Protocol PRN Reason: 40 unit/kg - Heparin Protocol Heparin Sodium (Porcine) (Heparin Sodium,Porcine 5,000 Unit/Ml Vial) 6,200 unit 80 unit/kg (6200 unit) IVPUSH PROTOCOL BOLUS PRN; Protocol PRN Reason: 80 unit/kg - Heparin Protocol Hydromorphone HCl (Hydromorphone Hcl 0.5 Mg/0.5 Ml Syringe) 0.5 mg IVPUSH Q4H PRN; Protocol PRN Reason: Pain, Severe (Pain Scale 7-10) Last Admin: 07/07/21 06:12 Dose: 0.5 mg Documented by: GABBIE Heparin Sodium/Sodium Chloride () 25,000 unit in 250 mls @ 0 mls/hr IVCONT .Q0M [facility]; Protocol Last Titration: 07/07/21 02:31 Dose: 14 units/kg/hr, 10.92 mls/hr Documented by: GABBIE Cosigned by: CLEMENT Ceftriaxone Sodium 1 gm/ (Sodium Chloride) 50 mls @ 100 mls/hr IV Q24H [facility] Lidocaine (Lidocaine 4 % Patch Adh..Patch) 1 patch TRANSDERMA DAILY [facility]; Protocol Last Admin: 07/07/21 03:35 Dose: 1 patch Documented by: GABBIE Melatonin (Melatonin 3 Mg Tablet) 6 mg PO BEDTIME PRN PRN Reason: Insomnia Oxycodone HCl (Oxycodone Hcl Immed Release 5 Mg Tablet) 10 mg PO Q4H PRN PRN Reason: Pain, Severe (Pain Scale 7-10) Last Admin: 07/07/21 09:49 Dose: 10 mg Documented by: CECE Pantoprazole Sodium (Pantoprazole Sodium 40 Mg/10 Ml Vial) 40 mg IVPUSH DAILY@0630 [facility] Last Admin: 07/07/21 06:12 Dose: 40 mg Documented by: GABBIE Pharmacy Consult (Consult Rx Perform Med Rec) 1 each MISCELLANE ONCE PRN PRN Reason: Consult order Senna (Sennosides 8.6 Mg Tablet) 17.2 mg PO BEDTIME PRN PRN Reason: Constipation Sodium Chloride (0.9 % Sodium Chloride Flush 3 Ml Syringe) 3 ml IVFLUSH QSHIFT BALDO Last Admin: 07/07/21 09:21 Dose: 3 ml Documented by: CECE Labs CBC & Chem 7: 07/07/21 08:02 07/07/21 08:02 Labs: Laboratory Results - last 24 hr 07/06/21 07/06/21 07/06/21 18:04 18:04 18:04 MCV MCH MCHC RDW Plt Count MPV Immature Gran % (Auto) Neut % (Auto) Lymph % (Auto) Porter % (Auto) Eos % (Auto) Baso % (Auto) Lymph # (Auto) Porter # (Auto) Eos # (Auto) Baso # (Auto) Abs Immat Gran (auto) Absolute Neuts (auto) Absolute Nucleated RBC Nucleated RBC % (auto) Smear Tech's Comments PT 13.9 H INR 1.2 H APTT 36.7 PTT (Heparin Protocol) D-Dimer 356 Anion Gap 17 Estim Creat Clear Calc 133.4 Estimated GFR > 60 Random Glucose 98 Calcium 9.9 Magnesium Total Bilirubin 1.4 H AST 24 ALT 23 Alkaline Phosphatase 117 Troponin I High Sens Total Protein 7.5 Albumin 4.6 Urine Opiates Screen Urine Fentanyl Screen Ur Barbiturates Screen Ur Phencyclidine Scrn Ur Amphetamines Screen U Benzodiazepines Scrn Urine Cocaine Screen U Marijuana (THC) Screen COVID-19 (HUY) Negative COVID-19 Clin Com See Note 07/06/21 07/06/21 07/06/21 18:04 18:05 22:06 MCV 96.6 MCH 32.6 MCHC 33.8 RDW 13.6 Plt Count 186 MPV 10.6 Immature Gran % (Auto) 0.5 H Neut % (Auto) 81.1 H Lymph % (Auto) 8.6 L Porter % (Auto) 9.5 Eos % (Auto) 0.1 Baso % (Auto) 0.2 Lymph # (Auto) 1.5 Porter # (Auto) 1.7 H Eos # (Auto) 0.0 Baso # (Auto) 0.0 Abs Immat Gran (auto) 0.09 H Absolute Neuts (auto) 14.5 H Absolute Nucleated RBC 0.000 Nucleated RBC % (auto) 0.0 Smear Tech's Comments VERIFIED PT INR APTT PTT (Heparin Protocol) D-Dimer Anion Gap Estim Creat Clear Calc Estimated GFR Random Glucose Calcium Magnesium Total Bilirubin AST ALT Alkaline Phosphatase Troponin I High Sens < 3.5 Total Protein Albumin Urine Opiates Screen POSITIVE H Urine Fentanyl Screen Not Detected Ur Barbiturates Screen Not Detected Ur Phencyclidine Scrn Not Detected Ur Amphetamines Screen Not Detected U Benzodiazepines Scrn Not Detected Urine Cocaine Screen Not Detected U Marijuana (THC) Screen POSITIVE H COVID-19 (HUY) COVID-[employer] 07/07/21 07/07/21 07/07/21 01:43 01:43 08:02 MCV 96.4 98.1 H MCH 32.5 32.3 MCHC 33.7 32.9 RDW 13.6 13.9 Plt Count 161 152 L MPV 10.2 10.5 Immature Gran % (Auto) 0.5 H 0.5 H Neut % (Auto) 68.6 70.9 Lymph % (Auto) 18.4 L 14.7 L Porter % (Auto) 12.1 H 13.4 H Eos % (Auto) 0.2 0.4 Baso % (Auto) 0.2 0.1 Lymph # (Auto) 2.7 2.2 Porter # (Auto) 1.8 H 2.1 H Eos # (Auto) 0.0 0.1 Baso # (Auto) 0.0 0.0 Abs Immat Gran (auto) 0.07 H 0.08 H Absolute Neuts (auto) 10.1 H 10.8 H Absolute Nucleated RBC 0.000 0.000 Nucleated RBC % (auto) 0.0 0.0 Smear Tech's Comments VERIFIED PT INR APTT PTT (Heparin Protocol) 66.3 D-Dimer Anion Gap Estim Creat Clear Calc Estimated GFR Random Glucose Calcium Magnesium Total Bilirubin AST ALT Alkaline Phosphatase Troponin I High Sens Total Protein Albumin Urine Opiates Screen Urine Fentanyl Screen Ur Barbiturates Screen Ur Phencyclidine Scrn Ur Amphetamines Screen U Benzodiazepines Scrn Urine Cocaine Screen U Marijuana (THC) Screen COVID-19 (HUY) COVID-[employer] Com 07/07/21 07/07/21 08:02 08:02 MCV MCH MCHC RDW Plt Count MPV Immature Gran % (Auto) Neut % (Auto) Lymph % (Auto) Porter % (Auto) Eos % (Auto) Baso % (Auto) Lymph # (Auto) Porter # (Auto) Eos # (Auto) Baso # (Auto) Abs Immat Gran (auto) Absolute Neuts (auto) Absolute Nucleated RBC Nucleated RBC % (auto) Smear Tech's Comments PT 14.2 H INR 1.2 H APTT PTT (Heparin Protocol) 53.6 D-Dimer Anion Gap 14 Estim Creat Clear Calc 141.8 Estimated GFR > 60 Random Glucose 82 Calcium 8.7 D Magnesium 1.9 Total Bilirubin AST ALT Alkaline Phosphatase Troponin I High Sens Total Protein Albumin Urine Opiates Screen Urine Fentanyl Screen Ur Barbiturates Screen Ur Phencyclidine Scrn Ur Amphetamines Screen U Benzodiazepines Scrn Urine Cocaine Screen U Marijuana (THC) Screen COVID-19 (HUY) COVID-[address] scan - chest: Radiologist's impression: Impressions Chest X-Ray 07/06/21 17:30 IMPRESSION: No acute intrathoracic disease Chest CTA 07/06/21 18:40 IMPRESSION: Filling defects within the segmental and subsegmental branches of the right upper lobe as well as subsegmental branches of the left lower lobe with associated airspace changes suggesting pulmonary emboli. The airspace disease in these regions could be due to infection, inflammation or even areas of infarction. VTE: Positive This critical result was discussed with SAMMY Rudolph at 07/06/2021 7:30 PM and it was ascertained that the content and urgency of the report was understood at the time of direct communication. Venous Duplex 07/06/21 20:59 IMPRESSION: No DVT demonstrated in the bilateral lower extremity. Assessment and Plan (1) Pulmonary emboli: Status: Acute (2) GERD (gastroesophageal reflux disease): Status: Acute (3) HIV (human immunodeficiency virus infection): Status: Acute Assessment and Plan: 35-year-old male past medical history of HIV, GERD, recent Gogo fundoplasty presents with shortness of breath and chest pain left greater than right. Exam consistent with bilateral pulmonary emboli. Has been tolerated heparin drip overnight pain control poor 1. Bilateral pulmonary emboli -continue heparin drip as ordered. Will consult heme Onc for possible transition to oral . -will add oral opiates to pain regimen for better control of his pain; p atient states he takes Benadryl when he takes oxycodone to alleviate itch. 2. HIV -viral load suppressed as per patient will continue outpatient therapies 3. GERD -status post fundoplasty continue PPIs order Quality Stroke Does the patient have a stroke diagnosis?: No VTE Prior VTE?: Yes Approximate Date of Prior VTE: 07/06/21 VTE Risk Level:: Medical - moderate - high VTE Device Contraindication: Treatment Not Indicated VTE Drug Contraindication: N/A - Med Ordered
[2021-07-07 13:18] LABS: Alanine Aminotransferase 18 U/L (0-40); Albumin Level 3.9 g/dL (3.5-5.0); Alkaline Phosphatase 94 U/L (39-117); Aspartate Amino Transferase 19 U/L (5-37); Bilirubin Total 1.3 mg/dL (0.0-1.0); Glucose Fasting 83 mg/dL (60-99); Total Protein 6.3 g/dL (6.5-8.0)
[2021-07-07] MEDS: Heparin Sodium,Porcine/1/2NS 25,000 UNIT/250 ML IV.SOLN 10.92 UNIT IVCONT (17:32)
[2021-07-07] MEDS: Azithromycin 500 MG TABLET PO (20:40)
[2021-07-07] MEDS: cefTRIAXone sodium 1 GM in 0.9 % Sodium Chloride 50 ML IV (20:40)
[2021-07-07] MEDS: Melatonin 3 MG TABLET 6 MG PO (22:19)
[2021-07-08] VITALS (9 sets, daily range): BP systolic 116–153; BP diastolic 61–81; PULSE 67–82; RESP 16–20; TEMP 36.1–37.1; O2SAT 94–98
[2021-07-08] MEDS: HYDROmorphone HCl 0.5 MG/0.5 ML SYRINGE IVPUSH ×2 (04:17→10:10)
[2021-07-08 06:04] LABS: MANUAL DIFF FLAG NO
[2021-07-08 06:12] LABS: Basophils Percent Auto 0.2 % (0-2); Eosinophils Absolute Auto 0.1 X10*3/uL (0.0-0.4); Eosinophils Percent Auto 0.5 % (0-4); Hematocrit 50.4 % (42-52); Hemoglobin 16.5 g/dl (14.0-18.0); Imm Gran Abs Auto 0.04 X10*3/uL (0.00-0.03); Imm Gran Pct Auto 0.4 % (0.0-0.4); Lymphocytes Absolute Auto 1.8 X10*3/uL (1.2-4.9); Lymphocytes Percent Auto 15.8 % (20-40); Mean Corpuscular HGB Conc 32.7 g/dl (31.0-36.0); Mean Corpuscular Volume 97.9 fL (80-98); Mean Platelet Volume 10.5 fL (9.4-12.4); Monocytes Absolute Auto 1.4 X10*3/uL (0.1-1.2); Monocytes Percent Auto 12.5 % (2-11); Neutrophils Absolute Auto 7.8 X10*3/uL (2.0-8.3); Neutrophils Percent Auto 70.6 % (45-73); Platelet Count 152 X10*3/uL (160-400); Red Blood Count 5.15 X10*6/uL (4.60-5.80); Red Cell Distribution Width 13.4 % (11.0-16.0); White Blood Count 11.1 X10*3/uL (4.8-10.8)
[2021-07-08] MEDS: Pantoprazole Sodium 40 MG/10 ML VIAL IVPUSH (06:13)
[2021-07-08] MEDS: oxyCODONE HCl Immed Release 5 MG TABLET 10 MG PO ×3 (06:17→20:50)
[2021-07-08 06:18] LABS: PTT Heparin Drip 54.8 SEC (53-77.9)
--- NOTE | 2021-07-08 08:57 | P.CNHO_ITS ---
Subjective - Subjective Chief complaint: CHEST PAIN Patient: new to practice Consult date: 07/08/21 Primary Care Provider: Mani Doe MD HPI - Consult Narrative Reason for consult: Bilateral PE Narrative: Romain Olguin is a 35 year old male who presented with chest pain and has been diagnosed with bilateral pulmonary emboli. He underwent knee since fundoplication on 06/05/21 at [facility]. He developed chest pain a day before admission, pleuritic pain on both sides of his chest. No associated dizziness or diaphoresis. He reports cough occasionally productive of sputum. No past history of thromboembolism or family history. He is a chronic smoker. He denies leg pain or swelling. He has had arthroscopic knee surgeries in the past without any problems. He reports continued bilateral chest pain and is requesting pain medication. Review of Systems - Constitutional Reports as per HPI, Reports no additional constitutional complaints, Denies fever(s), Denies weight loss - Cardiovascular Reports no additional cardiovascular complaints - Respiratory Reports no additional respiratory complaints [facility] Medical History: Medical History (Last Reviewed 07/07/21 @ 00:00 by Kaye Mcgrath RN) Colon cancer Colon polyps GERD (gastroesophageal reflux disease) HIV (human immunodeficiency virus infection) Social History: Social History (Last Reviewed 07/07/21 @ 10:33 by Genaro Salgado) Living Situation History: Household Members: Family Housing: House Do you presently have visiting nurse or other home services: No Tobacco History: Patient Tobacco Use Status: Current everyday Tobacco Tobacco use type: Cigarette Cigarette Packs Per Day: 0.5 Cigarettes Per Day: 10.0 Substance Use History: Use of substances other than those prescribed or required for medical reasons : Yes Substance Use Type: Marijuana Substance Use Frequency: Daily Last Used Substance: Hours (ago) Last Used Substance Other:: this morning Currently Displaying Signs/Symptoms of Drug Intoxication Withdrawal: No Domestic Abuse History: Have you been hit, kicked, punched, or otherwise hurt by someone within the past year? If so, by whom?: No Do you feel safe in your current relationship?: No Current Relationship Is there a partner from a previous relationship who is making you feel unsafe now?: No Are you made to feel afraid or neglected: No Advance Directives: Advance Directives: No Advance Directives Information Provided: No Homicidal Assessment: Do you have thoughts of harming others: None Do you have a plan to hurt others: No Plan Nutrition Assessment: Recently lost weight without trying: No Eating poorly because of decreased appetite: Yes Nutrition Risks: No Nutritional Risk Occupation Assessmet: service: No Home Medications and Allergies Current Medications: Current Medications Acetaminophen (Acetaminophen 325 Mg Tablet) 650 mg PO Q6H PRN PRN Reason: Pain, Mild (Pain Scale 1-3) Albuterol Sulfate (Albuterol Sulfate 90 Mcg 8 Gm Inhaler) 1 puff INHALE QID PRN PRN Reason: wheezing Azithromycin (Azithromycin 500 Mg Tablet) 500 mg PO Q24H [facility] Last Admin: 07/07/21 20:40 Dose: 500 mg Documented by: Bictegravir/Emtricitabine/Tenofovir (Bictegrav/Emtricit/Tenofov Ala 1 Tab Tablet) 1 tab PO DAILY [facility] Last Admin: 07/07/21 09:19 Dose: 1 tab Documented by: Diphenhydramine HCl (Diphenhydramine Hcl 25 Mg Tablet) 25 mg PO Q4H PRN PRN Reason: Itching Last Admin: 07/07/21 22:18 Dose: 25 mg Documented by: Fluoxetine HCl (Fluoxetine Hcl 20 Mg Capsule) 40 mg PO DAILY [facility] Last Admin: 07/07/21 09:19 Dose: 40 mg Documented by: Heparin Sodium (Porcine) (Heparin Sodium,Porcine 5,000 Unit/Ml Vial) 3,100 unit 40 unit/kg (3100 unit) IVPUSH PROTOCOL BOLUS PRN; Protocol PRN Reason: 40 unit/kg - Heparin Protocol Heparin Sodium (Porcine) (Heparin Sodium,Porcine 5,000 Unit/Ml Vial) 6,200 unit 80 unit/kg (6200 unit) IVPUSH PROTOCOL BOLUS PRN; Protocol PRN Reason: 80 unit/kg - Heparin Protocol Hydromorphone HCl (Hydromorphone Hcl 0.5 Mg/0.5 Ml Syringe) 0.5 mg IVPUSH Q4H PRN; Protocol PRN Reason: Pain, Severe (Pain Scale 7-10) Last Admin: 07/08/21 04:17 Dose: 0.5 mg Documented by: Heparin Sodium/Sodium Chloride () 25,000 unit in 250 mls @ 0 mls/hr IVCONT .Q0M [facility]; Protocol Last Titration: 07/08/21 07:26 Dose: 14 units/kg/hr, 10.92 mls/hr Documented by: Ceftriaxone Sodium 1 gm/ (Sodium Chloride) 50 mls @ 100 mls/hr IV Q24H [facility] Last Infusion: 07/07/21 21:22 Dose: Infused Documented by: Lidocaine (Lidocaine 4 % Patch Adh..Patch) 1 patch TRANSDERMA DAILY [facility]; Protocol Last Admin: 07/07/21 14:13 Dose: 1 patch Documented by: Melatonin (Melatonin 3 Mg Tablet) 6 mg PO BEDTIME PRN PRN Reason: Insomnia Last Admin: 07/07/21 22:19 Dose: 6 mg Documented by: Oxycodone HCl (Oxycodone Hcl Immed Release 5 Mg Tablet) 10 mg PO Q4H PRN PRN Reason: Pain, Severe (Pain Scale 7-10) Last Admin: 07/08/21 06:17 Dose: 10 mg Documented by: Pantoprazole Sodium (Pantoprazole Sodium 40 Mg/10 Ml Vial) 40 mg IVPUSH DAILY@0630 [facility] Last Admin: 07/08/21 06:13 Dose: 40 mg Documented by: Pharmacy Consult (Consult Rx Perform Med Rec) 1 each MISCELLANE ONCE PRN PRN Reason: Consult order Senna (Sennosides 8.6 Mg Tablet) 17.2 mg PO BEDTIME PRN PRN Reason: Constipation Sodium Chloride (0.9 % Sodium Chloride Flush 3 Ml Syringe) 3 ml IVFLUSH QSHIFT [facility] Last Admin: 07/07/21 20:41 Dose: 3 ml Documented by: Home Medications Medication Instructions Recorded Confirmed Type albuterol sulfate 90 mcg/actuation 1 puff PO QID PRN 07/06/21 07/06/21 History aerosol inhaler (ProAir HFA) betamethasone dipropionate 0.05 % 1 appl TOPICAL BID PRN 07/06/21 07/06/21 His tory topical cream bictegravir 50 mg-emtricitabine 1 tab PO DAILY 07/06/21 07/06/21 History 200 mg-tenofovir alafenam 25 mg tablet (Biktarvy) fluoxetine 20 mg capsule 2 cap PO QAM 07/06/21 07/06/21 History Allergies Allergy/AdvReac Type Severity Reaction Status Date / Time No Known Allergies Allergy Verified 07/06/21 17:29 Physical Exam Vital signs: Vital Signs Temp 98.7 F 07/08/21 08:00 Pulse 70 07/08/21 08:00 Resp 18 07/08/21 08:00 BP 131/75 07/08/21 08:00 Pulse Ox 98 07/08/21 08:00 Intake & Output 07/07/21 07/08/21 07/08/21 18:59 06:59 18:59 Intake Total 523.982 / 813.982 290 / 813.982 151.788 / 151.788 Balance 523.982 / 813.982 290 / 813.982 151.788 / 151.788 Intake: Intake, Oral Amount 360 / 600 240 / 600 Intake, IV Amount 163.982 / 213.982 50 / 213.982 151.788 / 151.788 cefTRIAXone sodium 1 gm In 0.9 50 / 50 % Sodium Chloride 50 ml @ 100 mls/hr IV Q24H [facility] Rx#: [id number] Heparin Sodium,Porcine/1/2NS 25 163.982 / 163.982 151.788 / 151.788 ,000 unit In 250 ml @ Per Protocol IVCONT .Q0M [facility] Rx#: [id number] Other: Breakfast % Eaten 100% Lunch % Eaten 100% Number of Unmeasured Voids 3 3 Urine Bathroom Weight 82.7 kg - Constitutional Present: no acute distress - Routine HEENT Exam Head: Present: normal inspection Eye: Present: normal appearance - Routine Respiratory Exam Present: CTAB. Absent: accessory muscle use - Routine Cardiovascular Exam Cardiovascular: Present: S1, S2 - Routine Extremities Exam Absent: pedal edema - Routine Skin Exam Present: intact. Absent: cyanosis, erythema Hem/Onc Consult Result - Labs CBC & Chem 7: 07/08/21 06:00 07/07/21 08:02 Labs: Short CBC 07/08/21 Range/Units 06:00 WBC 11.1 H (4.8-10.8) X10*3/uL Hgb 16.5 (14.0-18.0) g/dl Hct 50.4 (42-52) % Plt Count 152 L (160-400) X10*3/uL BMP 07/07/21 08:02 Sodium 137 Potassium 3.8 Chloride 103 Carbon Dioxide 24 BUN 8 L Creatinine 0.79 Calcium 8.7 D Liver Function 07/07/21 Range/Units 08:02 Total Bilirubin 1.3 H (0.0-1.0) mg/dL AST 19 (5-37) U/L ALT 18 (0-40) U/L Alkaline Phosphatase 94 (39-117) U/L Albumin 3.9 (3.5-5.0) g/dL Assessment and Plan Patient Active problem list reviewed?: Yes (1) Pulmonary emboli Status: Acute Assessment and plan: 1. This is a 35-year-old male who developed bilateral pulmonary emboli a month after gastric surgery, Gogo fundoplasty. CT angiogram performed on 07/06/2021 revealed segmental and subsegmental pulmonary emboli in right upper and left lower lobes. Bilateral lower extremity Doppler was negative for DVT. He is a chronic smoker. There is no family history of thromboembolism. He has been started on heparin, he can be switched to oral anticoagulants, any of the a DOAc's such as Xarelto or Eliquis can be started if covered by his insurance carrier. Otherwise he may have to be started on warfarin and monitored at the [facility]. Since this is provoked episode of thromboembolism, 3-6 months of anticoagulation is recommended. Patient was advised about association of smoking with increased risk of thrombosis. There is no role of testing for underlying thrombophilia at this time. I thank you for this consultation. - Time Spent With Patient Time Spent with Patient (in minutes): 20
[2021-07-08] MEDS: FLUoxetine HCl 20 MG CAPSULE 40 MG PO (10:12)
[2021-07-08] MEDS: 0.9 % Sodium Chloride Flush 3 ML SYRINGE IVFLUSH ×2 (10:13→23:11)
[2021-07-08] MEDS: Lidocaine 4 % Patch ADH..PATCH 1 PATCH TRANSDERMA (10:13)
--- NOTE | 2021-07-08 11:03 | MHC.CM.PN ---
Per ROUNDS discussion, Patient is not yet medically cleared for dc (IV Protonix, IV Ceftriaxone, Heparin Drip, IV Dilaudid). Home is the goal for dc and CM will follow for possible need to adjust the dc plan.
--- NOTE | 2021-07-08 14:47 | HO.PM.IMPN ---
Subjective Subjective Date of Service: 07/09/21 Interval History: Patient being followed for pulmonary embolus, complaining of significant pain left anterior chest wall, worse with deep breathing, denies fever chills, oxygenation remains stable. Review of Systems General no headache, no dizziness, no fever chills. Musculoskeletal left sided ant. chest wall pain Respiratory no cough,no sob. Gastrointestinal no nausea no vomiting, no abdominal pain Skin no rash Physical Exam Vital Signs: Vital Signs: Last Vital Signs Temp 96.9 F 07/08/21 12:00 Pulse 82 07/08/21 12:00 Resp 16 07/08/21 12:00 BP 127/80 07/08/21 12:00 Pulse Ox 96 07/08/21 12:00 Body Mass Index 24.7 General no acute distress. Neck supple no JVD. CVS regular rate rhythm, Anterior chest wall positive tenderness to palpation left anterior chest with minimal palpation Respiratory lungs clear to auscultation, diminished breath sound at bases, no respiratory distress, no wheeze, no rhonchi. Gastrointestinal abdomen soft, nontender, bowel sounds audible, no guarding , no rigidity. Extremities no edema. Neuro nonfocal / speech clear. Skin no rash Objective Data Active Medications Acetaminophen (Acetaminophen 325 Mg Tablet) 650 mg PO Q6H PRN PRN Reason: Pain, Mild (Pain Scale 1-3) Albuterol Sulfate (Albuterol Sulfate 90 Mcg 8 Gm Inhaler) 1 puff INHALE QID PRN PRN Reason: wheezing Azithromycin (Azithromycin 500 Mg Tablet) 500 mg PO Q24H [facility] Last Admin: 07/07/21 20:40 Dose: 500 mg Documented by: GABBIE Bictegravir/Emtricitabine/Tenofovir (Bictegrav/Emtricit/Tenofov Ala 1 Tab Tablet) 1 tab PO DAILY [facility] Last Admin: 07/08/21 10:12 Dose: 1 tab Documented by: HUGH Diphenhydramine HCl (Diphenhydramine Hcl 25 Mg Tablet) 25 mg PO Q4H PRN PRN Reason: Itching Last Admin: 07/07/21 22:18 Dose: 25 mg Documented by: GABBIE Fluoxetine HCl (Fluoxetine Hcl 20 Mg Capsule) 40 mg PO DAILY [facility] Last Admin: 07/08/21 10:12 Dose: 40 mg Documented by: HUGH Heparin Sodium (Porcine) (Heparin Sodium,Porcine 5,000 Unit/Ml Vial) 3,100 unit 40 unit/kg (3100 unit) IVPUSH PROTOCOL BOLUS PRN; Protocol PRN Reason: 40 unit/kg - Heparin Protocol Heparin Sodium (Porcine) (Heparin Sodium,Porcine 5,000 Unit/Ml Vial) 6,200 unit 80 unit/kg (6200 unit) IVPUSH PROTOCOL BOLUS PRN; Protocol PRN Reason: 80 unit/kg - Heparin Protocol Hydromorphone HCl (Hydromorphone Hcl 0.5 Mg/0.5 Ml Syringe) 0.5 mg IVPUSH Q4H PRN; Protocol PRN Reason: Pain, Severe (Pain Scale 7-10) Last Admin: 07/08/21 10:10 Dose: 0.5 mg Documented by: HUGH Heparin Sodium/Sodium Chloride () 25,000 unit in 250 mls @ 0 mls/hr IVCONT .Q0M [facility]; Protocol Last Titration: 07/08/21 07:26 Dose: 14 units/kg/hr, 10.92 mls/hr Documented by: HUGH Cosigned by: GABBIE Ceftriaxone Sodium 1 gm/ (Sodium Chloride) 50 mls @ 100 mls/hr IV Q24H [facility] Last Infusion: 07/07/21 21:22 Dose: 0 mls/hr Documented by: GABBIE Lidocaine (Lidocaine 4 % Patch Adh..Patch) 1 patch TRANSDERMA DAILY [facility]; Protocol Last Admin: 07/08/21 10:13 Dose: 1 patch Documented by: HUGH Melatonin (Melatonin 3 Mg Tablet) 6 mg PO BEDTIME PRN PRN Reason: Insomnia Last Admin: 07/07/21 22:19 Dose: 6 mg Documented by: GABBIE Oxycodone HCl (Oxycodone Hcl Immed Release 5 Mg Tablet) 10 mg PO Q4H PRN PRN Reason: Pain, Severe (Pain Scale 7-10) Last Admin: 07/08/21 13:27 Dose: 10 mg Documented by: HUGH Pantoprazole Sodium (Pantoprazole Sodium 40 Mg/10 Ml Vial) 40 mg IVPUSH DAILY@0630 [facility] Last Admin: 07/08/21 06:13 Dose: 40 mg Documented by: GABBIE Pharmacy Consult (Consult Rx Perform Med Rec) 1 each MISCELLANE ONCE PRN PRN Reason: Consult order Senna (Sennosides 8.6 Mg Tablet) 17.2 mg PO BEDTIME PRN PRN Reason: Constipation Sodium Chloride (0.9 % Sodium Chloride Flush 3 Ml Syringe) 3 ml IVFLUSH QSHIFT [facility] Last Admin: 07/08/21 10:13 Dose: 3 ml Documented by: HUGH Labs CBC & Chem 7: 07/08/21 06:00 07/07/21 08:02 Labs: Laboratory Results - last 24 hr 07/08/21 07/08/21 06:00 06:00 MCV 97.9 MCH 32.0 MCHC 32.7 RDW 13.4 Plt Count 152 L MPV 10.5 Immature Gran % (Auto) 0.4 Neut % (Auto) 70.6 Lymph % (Auto) 15.8 L Page % (Auto) 12.5 H Eos % (Auto) 0.5 Baso % (Auto) 0.2 Lymph # (Auto) 1.8 Page # (Auto) 1.4 H Eos # (Auto) 0.1 Baso # (Auto) 0.0 Abs Immat Gran (auto) 0.04 H Absolute Neuts (auto) 7.8 Absolute Nucleated RBC 0.000 Nucleated RBC % (auto) 0.0 PTT (Heparin Protocol) 54.8 Microbiology Microbiology Results: Microbiology 07/06/21 21:12 Blood Culture - Preliminary Blood - Venous No growth after 24 hours. 07/06/21 21:12 Blood Culture - Preliminary Blood - Venous No growth after 24 hours. Assessment and Plan (1) Pulmonary emboli: Status: Acute (2) GERD (gastroesophageal reflux disease): Status: Acute (3) HIV (human immunodeficiency virus infection): Status: Acute Assessment and Plan: 35-year-old male past medical history of HIV, GERD, recent Gogo fundoplasty presents with shortness of breath and chest pain left greater than right.? Exam consistent with bilateral pulmonary emboli.? Has been tolerated heparin drip overnight pain control poor 1. Acute Bilateral pulmonary emboli ? ?Persistent chest pain, likely due to pulmonary infarction, currently on IV Dilaudid and by mouth oxycodone still asking for more pain medication Will DC IV heparin drip and placed on Eliquis b.i.d., case discussed with Dr. Howard will need 3-6 months of anticoagulant since provoked DVT, no further hemophilia workup required Will gradually wean Dilaudid, continue Lidoderm patch, hot pack, advised to splint with coughing and deep breathing Encourage out of bed to chair and Deep breathing. 2. HIV ? ? viral load suppressed as per patient, rec. outpatient therapies 3. GERD ? ? status post fundoplasty continue PPIs , outpatient follow-up with General surgery 4. Question airspace disease, no evidence of pneumonia normal oxygenation no cough, no fevers, will discontinue antibiotics. DVT prophylaxis on anticoagulant. Quality Stroke Does the patient have a stroke diagnosis?: No VTE Prior VTE?: Yes Approximate Date of Prior VTE: 07/06/21 VTE Risk Level:: Medical - moderate - high VTE Device Contraindication: Treatment Not Indicated VTE Drug Contraindication: N/A - Med Ordered
[2021-07-08] MEDS: Apixaban 5 MG TABLET 10 MG PO (20:51)
[2021-07-08] MEDS: Melatonin 3 MG TABLET 6 MG PO (23:09)
[2021-07-08] MEDS: diphenhydrAMINE HCL 25 MG TABLET PO (23:09)
[2021-07-09 03:25] VITALS: BP 119/80; PULSE 75; RESP 18; TEMP 36.6; O2SAT 98
[2021-07-09] MEDS: oxyCODONE HCl Immed Release 5 MG TABLET 10 MG PO ×2 (05:30→10:06)
[2021-07-09] MEDS: Pantoprazole Sodium 40 MG/10 ML VIAL IVPUSH (05:30)
[2021-07-09 06:18] LABS: PTT Heparin Drip 46.3 SEC (53-77.9)
[2021-07-09 07:13] VITALS: BP 125/68; PULSE 63; RESP 18; TEMP 37.2; O2SAT 96
[2021-07-09] MEDS: Lidocaine 4 % Patch ADH..PATCH 1 PATCH TRANSDERMA (10:05)
[2021-07-09] MEDS: 0.9 % Sodium Chloride Flush 3 ML SYRINGE IVFLUSH (10:05)
[2021-07-09] MEDS: Apixaban 5 MG TABLET 10 MG PO (10:05)
[2021-07-09] MEDS: FLUoxetine HCl 20 MG CAPSULE 40 MG PO (10:05)
--- NOTE | 2021-07-09 11:18 | MHC.CM.PN ---
Patient has been medically cleared for dc to home today, no services.
--- NOTE | 2021-07-09 11:20 | MHC.CM.PN ---
Per ROUNDS discussion and RN CM, Patient's insurance will cover Eliquis.
--- NOTE | 2021-07-09 11:46 | P.DS_ITS ---
DS: Providers Provider Date of Service: 07/09/21 Date of admission: 07/06/21 20:16 Primary care physician: Mani Doe MD Consults: 07/06/21 20:24 Consult to Gastroenterology Routine Consulting Provider: Jon Potter Reason for consultation: hx gastric ulcer/surgery; now PE on heaprin ; ?high risk of bleeding. 07/07/21 09:30 Consult to Hematology / Oncology Routine Consulting Provider: [facility] Oncology/Hematology Reason for consultation: Pulmonary emboli on Heparin. ? oral agents DS: Diagnosis Discharge Diagnosis (1) Pulmonary emboli: Status: Acute (2) GERD (gastroesophageal reflux disease): Status: Acute (3) HIV (human immunodeficiency virus infection): Status: Acute DS: Summary Hospital Course Hospital Course: Chief Complaint: Chest pain 35-year-old male with a past medical history Of HIV, colon polyps, GERD, recent gastric surgery 3 weeks ago presented to the hospital today with a chief compla int of chest pain. Patient reported the chest pain is noted on the left side chest, nonradiating, associated with difficulty breathing; mentioned the chest pain worsens with deep inspiration; tender to palpate; initially noted on the left lateral side of the chest wall; and today he has chest pain on the right lateral? chest wall. Chest pain is sharp in nature. Denies any cough or sputum production. Denies any numbness tingling or focal weakness. Denies any GI or symptoms. Review of all other systems is negative except mentioned above ER course: Per ER team patient EKG was nonischemic, troponin negative, D-dimer positive; CT chest showed evidence of segmental and subsegmental PE but no evidence of right heart strain.? Patient was started on heparin drip.? Admitted to the hospital for further management. Hospital course 35-year-old gentleman presented to [facility] [place] due to chest pain and shortness of breath and diagnosed to have bilateral pulmonary emboli on CT angiogram 07/06 that showed segmental and subsegmental pulmonary emboli in the right upper and left lower lobes patient is status post gastric surgery, Gogo fundoplasty 1 month ago, patient treated with IV heparin and subsequently transitioned to by mouth Eliquis, since it is a provoked episode of thromboembolism patient is recommended 3-6 months of anticoagulation by Dr. Howard from Hematology, for pain patient was treated with intravenous Dilaudid, lidocaine patch and oxycodone , pain has improved He is not hypoxic therefore being discharged home on by mouth oxycodone patient is also recommended to abstain from smoking. Time Spent with Patient Time attestation: Total time spent providing and/or coordinating discharge services: Discharge coordination time: Greater than 30 minutes Quality: Stroke Does the patient have a stroke diagnosis?: No Physical Exam Vital Signs: Vital Signs: Last Vital Signs Temp 98.9 F 07/09/21 07:13 Pulse 63 07/09/21 07:13 Resp 18 07/09/21 07:13 BP 125/68 07/09/21 07:13 Pulse Ox 96 07/09/21 07:13 Body Mass Index 24.7 General no acute distress.? Neck supple no JVD. CVS? regular rate rhythm, Respiratory lungs clear to auscultation, diminished breath sound at bases, no respiratory distress, no wheeze, no rhonchi. Gastrointestinal abdomen soft, nontender, bowel sounds audible, no guarding , no rigidity. Extremities no edema. Neuro nonfocal / speech clear. Skin no rash DS: Data Data Completed and Pending Labs on day of discharge: Laboratory Results - last 24 hr 07/09/21 06:04 PTT (Heparin Protocol) 46.3 L Preliminary micro results at discharge 07/06/21 21:12 Blood Culture - Preliminary Blood - Venous No growth after 48 hours. 07/06/21 21:12 Blood Culture - Preliminary Blood - Venous No growth after 48 hours. Discharge Plan Discharge Patient Disposition: Home, Self-Care Discharge Diagnosis: Acute bilateral pulmonary emboli Referrals: Mani Doe MD [Primary Care Provider] - 1 Week Discharge Medications: New Eliquis 5 mg tablet 5 mg PO BID Qty: 90 RF: 0 oxycodone 5 mg tablet 5 mg PO Q6H PRN (Reason: severe pain (scale score 7-10)) Qty: 14 RF: 0 Continued betamethasone dipropionate 0.05 % cream 1 appl topical BID PRN (Reason: Rash) RF: 0 albuterol sulfate [ProAir HFA] 90 mcg/actuation HFA aerosol inhaler 1 puff PO QID PRN (Reason: wheezing) RF: 0 fluoxetine 20 mg capsule 2 cap PO QAM RF: 0 Biktarvy 50-200-25 mg tablet 1 tab PO DAILY RF: 0 Discharge Orders: Discharge Order (Routine); Ordered 07/09/21 Ordered By: Griffin Corbin Diet: advance to usual diet Activity on Discharge: As tolerated Stand Alone Forms: Patient Portal Discharge page Care Plan Goals: For pulmonary embolism take Eliquis 5 mg (2 tablets total 10mg twice daily) for 6 days, followed by Eliquis 5 mg 1 tablet twice daily, activity as tolerated Health Concerns: Status post recent surgery recommend to follow-up with General surgery, strongly recommend to abstain from smoking Plan of Treatment: Outpatient follow-up with primary care physician and General surgery in next 1-2 weeks Assessment: As above
== END 2021-07-09 11:51 | disposition home or self-care (01) | DRG 134 ==
LOC: HO.ED 17:25 → HO.EDOVER 20:30 → HO.IMC 20:57
PROVIDERS: Hospitalist; Nurse Practitioner Primary Care; Admitting Provider Hospitalist; Emergency Provider Emergency Medicine; PCP Internal Medicine; Visit Provider Hospitalist
DX: I26.99 Other pulmonary embolism without acute cor pulmonale (principal); J18.9 Pneumonia, unspecified organism; F17.210 Nicotine dependence, cigarettes, uncomplicated; Z21 Asymptomatic human immunodeficiency virus [HIV] infection status; Z20.822 Contact with and (suspected) exposure to COVID-19; Z86.010 Personal history of colon polyps; Z71.6 Tobacco abuse counseling; Z79.01 Long term (current) use of anticoagulants; Z79.899 Other long term (current) drug therapy; Z66 Do not resuscitate
CPT/HCPCS: 36415; 71045; 71275; 80048; 80053; 80307; 83735; 84484; 85025; 85379; 85610; 85730; 87040; 87635; 93005; 93306; 93970; 99285; J0456; J0696; J1170; J2270; J2405; Q0163; Q9967

== ENCOUNTER 2021-11-23 11:33 | Outpatient (REF) | payer OTHER, SELFPAY ==
[2021-11-24 13:01] LABS: Absolute CD3 Count 1828 cells/uL (840-3060); Absolute CD4 Count 584 cells/uL (490-1740); Absolute CD8 Count 1236 cells/uL (180-1170); Absolute Lymphocytes 2188 cells/uL (850-3900); CD4 CD8 Ratio 0.47 (0.86-5.00); Percent CD3 Cells 84 % (57-85); Percent CD4 Cells 27 % (30-61); Percent CD8 Cells 56 % (12-42)
[2021-11-27 14:22] LABS: HIV RNA PCR Qn Copies 21 Copies/mL; HIV RNA PCR Qn Log Copies 1.32 Log cps/mL
== END 2021-11-23 11:34 | disposition home or self-care (01) ==
LOC: HO.LAB 11:33
PROVIDERS: PCP Internal Medicine; Visit Provider Internal Medicine
DX: B20 Human immunodeficiency virus [HIV] disease (principal)
CPT/HCPCS: 36415; 86359; 86360; 87536

== ENCOUNTER → 2022-01-06 10:31 | Outpatient (BNVA) | payer OTHER, SELFPAY | PROVIDERS: PCP Internal Medicine; Visit Provider Internal Medicine | DX: B20 Human immunodeficiency virus [HIV] disease (principal) | CPT/HCPCS: 99212 ==

== ENCOUNTER → 2022-03-03 10:41 | Outpatient (BNVA) | payer OTHER, SELFPAY | PROVIDERS: Visit Provider Internal Medicine | DX: B20 Human immunodeficiency virus [HIV] disease (principal); Z79.899 Other long term (current) drug therapy | CPT/HCPCS: 96372; 99212 ==

== ENCOUNTER 2022-03-10 14:32 | Outpatient (REF) | payer OTHER, SELFPAY ==
[2022-03-12 14:25] LABS: Absolute CD3 Count 2360 cells/uL (840-3060); Absolute CD4 Count 795 cells/uL (490-1740); Absolute CD8 Count 1542 cells/uL (180-1170); Absolute Lymphocytes 2834 cells/uL (850-3900); CD4 CD8 Ratio 0.52 (0.86-5.00); Percent CD3 Cells 83 % (57-85); Percent CD4 Cells 28 % (30-61); Percent CD8 Cells 54 % (12-42)
[2022-03-12 19:16] LABS: HIV RNA PCR Qn Copies <20 DETECTED copies/mL (NOT DETECTED); HIV RNA PCR Qn Log Copies <1.30 DETECTED (NOT DETECTED)
== END 2022-03-10 14:33 | disposition home or self-care (01) ==
LOC: HO.LAB 14:32
PROVIDERS: PCP Internal Medicine; Visit Provider Internal Medicine
DX: B20 Human immunodeficiency virus [HIV] disease (principal)
CPT/HCPCS: 36415; 86359; 86360; 87536

== ENCOUNTER → 2022-03-31 13:23 | Outpatient (BNVA) | payer OTHER, SELFPAY | PROVIDERS: Visit Provider Internal Medicine | DX: B20 Human immunodeficiency virus [HIV] disease (principal) | CPT/HCPCS: 96372; 99212 ==

== ENCOUNTER 2022-05-10 10:19 | Outpatient (REF) | payer OTHER, SELFPAY ==
[2022-05-10 11:01] LABS: MANUAL DIFF FLAG NO
[2022-05-10 11:43] LABS: Basophils Percent Auto 0.2 % (0-2); Eosinophils Absolute Auto 0.1 X10*3/uL (0.0-0.4); Eosinophils Percent Auto 0.4 % (0-4); Hematocrit 44.6 % (42.0-52.0); Imm Gran Abs Auto 0.06 X10*3/uL (0.00-0.03); Imm Gran Pct Auto 0.4 % (0.0-0.4); Lymphocytes Absolute Auto 2.8 X10*3/uL (1.2-4.9); Lymphocytes Percent Auto 16.8 % (20-40); Mean Corpuscular HGB Conc 33.6 g/dl (31.0-36.0); Mean Corpuscular Hemoglobin 32.5 pg (27.0-33.0); Mean Corpuscular Volume 96.7 fL (80.0-98.0); Mean Platelet Volume 11.6 fL (9.4-12.4); Monocytes Absolute Auto 1.3 X10*3/uL (0.1-1.2); Monocytes Percent Auto 7.6 % (2-11); Neutrophils Absolute Auto 12.3 x10*3/uL (2.0-8.3); Neutrophils Percent Auto 74.6 % (45-73); Platelet Count 290 X10*3/uL (160-400); Red Blood Count 4.61 X10*6/uL (4.60-5.80); Red Cell Distribution Width 11.9 % (11.0-16.0); White Blood Count 16.5 X10*3/uL (4.8-10.8)
[2022-05-10 12:36] LABS: Anion Gap 20 (12-20); Blood Urea Nitrogen 15 mg/dL (9-16); Calcium 10.1 mg/dL (8.4-10.2); Carbon Dioxide 20 mmol/L (22-29); Chloride 105 mmol/L (96-108); Estimated Glomerular Filt Rate > 60; Glucose Random 104 mg/dL (60-115); Potassium 3.8 mmol/L (3.3-5.1); Sodium 141 mmol/L (135-145)
[2022-05-11 14:52] LABS: Absolute CD3 Count 2110 cells/uL (840-3060); Absolute CD4 Count 705 cells/uL (490-1740); Absolute CD8 Count 1370 cells/uL (180-1170); Absolute Lymphocytes 2678 cells/uL (850-3900); CD4 CD8 Ratio 0.51 (0.86-5.00); Percent CD3 Cells 79 % (57-85); Percent CD4 Cells 26 % (30-61); Percent CD8 Cells 51 % (12-42)
[2022-05-11 21:03] LABS: HIV RNA PCR Qn Copies NOT DETECTED copies/mL (NOT DETECTED); HIV RNA PCR Qn Log Copies NOT DETECTED (NOT DETECTED)
[2022-05-14 14:56] LABS: CK-BB None Detected (None Detected); CK-MB 0 % (<5); CK-MM 100 % (95-100); Creatine Kinase,Total,Serum 123 U/L (44-196)
== END 2022-05-10 10:20 | disposition home or self-care (01) ==
LOC: HO.LAB 10:19
PROVIDERS: Visit Provider Internal Medicine
DX: B20 Human immunodeficiency virus [HIV] disease (principal)
CPT/HCPCS: 36415; 80048; 82552; 85025; 86359; 86360; 87536

== ENCOUNTER → 2022-05-14 11:27 | Outpatient (BNVA) | payer OTHER, SELFPAY | PROVIDERS: Visit Provider Internal Medicine | DX: B20 Human immunodeficiency virus [HIV] disease (principal); Z51.81 Encounter for therapeutic drug level monitoring; Z79.899 Other long term (current) drug therapy | CPT/HCPCS: 99212; J0741 ==

== ENCOUNTER 2022-05-19 13:00 | Emergency (ER) | payer OTHER, SELFPAY ==
--- NOTE | ~2022-05-19 | CT_ITS ---
EXAMINATION: CT ABDOMEN AND PELVIS WITHOUT CONTRAST CLINICAL INFORMATION: Diffuse abdominal pain and nausea. COMPARISON: None TECHNIQUE: Multidetector volumetric imaging was performed from the superior aspect of the liver through the pubic symphysis. Sagittal and coronal reformatted images were obtained on the technologist's workstation. This CT examination was performed using dose optimization techniques as appropriate, variously including the following: *Automated exposure control *Adjustment of mA and/or kV according to patient size (this includes techniques or standardized protocols for targeted exams where dose is matched to indication/reason for exam; i.e. extremities or head) *Use of iterative reconstruction technique DLP: 581 mGy-cm FINDINGS: LUNG BASES: Visualized lung bases are clear. LIVER, GALLBLADDER, AND BILIARY TREE: The liver is normal in size, shape, and attenuation. No focal hepatic lesion or biliary ductal dilatation is present. The gallbladder is unremarkable with no evidence of radiopaque gallstones, gallbladder wall thickening, or obvious pericholecystic inflammatory changes. PANCREAS: Unremarkable. SPLEEN: Unremarkable. ADRENAL GLANDS: Unremarkable. KIDNEYS AND URETERS: The kidneys are normal in size, shape, and attenuation. No hydronephrosis, hydroureter, or calculi seen. No perinephric stranding. BLADDER: There is mild posterior bladder wall thickening rest of the bladder appears unremarkable. Unremarkable. GASTROINTESTINAL TRACT: There is scattered stool and gas seen throughout the colon without distention. The small bowel loops are normal caliber. The appendix is normal caliber. The stomach is nondistended. ABDOMINAL WALL: No significant hernia is appreciated. LYMPH NODES: Normal. VASCULAR: Unremarkable. PELVIC VISCERA: The prostate gland is normal size. OSSEOUS STRUCTURES: No lytic or sclerotic process seen. CT/CT abdomen pelvis wo con IMPRESSION: No acute intra-abdominal process seen. Mild constipation. No radiographic urolith or hydronephrosis. Fleischner guidelines were followed.
[2022-05-19 13:59] VITALS: BP 122/73; PULSE 82; RESP 18; TEMP 37.3; O2SAT 99; BMI 24.7
[2022-05-19 14:41] LABS: Appearance Urine CLEAR; Color Urine STRAW; Glucose Urine UA NEG (NEG); Leukocyte Esterase Urine NEG (NEG); Nitrite Urine NEG (NEG); PH 6.5 (5.0-8.0); Specific Gravity - Urine <= 1.005 (1.005-1.025); Urine Blood NEG (NEG); Urine Ketones NEG (NEG); Urine Protein NEG (NEG-TRACE)
[2022-05-19 14:57] LABS: COVID-19 Test Negative (Negative)
[2022-05-19 14:58] LABS: Amphetamine Screen Urine Not Detected (Not Detect); Barbiturates, Urine Not Detected (Not Detect); Benzodiazepines Screen Urine Not Detected (Not Detect); Cannabinoid Screen Urine POSITIVE (Not Detect); Cocaine Screen Urine Not Detected (Not Detect); Fentanyl, urine Not Detected (Not Detect); Opiate Screen Urine Not Detected (Not Detect); Phencyclidine Screen Urine Not Detected (Not Detect)
[2022-05-19 15:30] LABS: MANUAL DIFF FLAG NO
[2022-05-19 15:33] LABS: Basophils Percent Auto 0.1 % (0-2); Eosinophils Absolute Auto 0.4 X10*3/uL (0.0-0.4); Eosinophils Percent Auto 5.4 % (0-4); Hematocrit 39.8 % (42.0-52.0); Hemoglobin 13.3 g/dl (14.0-18.0); Imm Gran Abs Auto 0.03 X10*3/uL (0.00-0.03); Imm Gran Pct Auto 0.4 % (0.0-0.4); Lymphocytes Percent Auto 14.2 % (20-40); Mean Corpuscular HGB Conc 33.4 g/dl (31.0-36.0); Mean Corpuscular Hemoglobin 32.1 pg (27.0-33.0); Mean Corpuscular Volume 96.1 fL (80.0-98.0); Mean Platelet Volume 10.7 fL (9.4-12.4); Monocytes Absolute Auto 0.7 X10*3/uL (0.1-1.2); Monocytes Percent Auto 9.1 % (2-11); Neutrophils Absolute Auto 5.1 x10*3/uL (2.0-8.3); Neutrophils Percent Auto 70.8 % (45-73); Platelet Count 195 X10*3/uL (160-400); Red Blood Count 4.14 X10*6/uL (4.60-5.80); Red Cell Distribution Width 12.3 % (11.0-16.0); White Blood Count 7.2 X10*3/uL (4.8-10.8)
--- NOTE | 2022-05-19 15:46 | ED.GENADULT ---
HPI - General Adult General Chief complaint: General Medical Stated complaint: body aches Time Seen by Provider: 05/19/22 14:26 Source: patient Mode of arrival: ambulatory Limitations: no limitations History of Present Illness HPI narrative: 36-year-old male with a past medical history of AIN grade II, colon cancer, condyloma acuminatum of anus, HIV currently on IM injections of antivirals Cabotegravir-rilpivirine being followed by infectious disease Dr. Pickens receive his last IM injection on 05/14/2022, asthma, depression, GERD, PTSD and alcohol abuse who was recently started on Naltrexone 05/14/2022 presenting to the ED with complaints of subjective fevers, chills, fatigue, malaise, body aches, head pressure, shortness of breath and abdominal pain for the past 2 days worse today. Reports that he was also started on antibiotics for UTI and is taking as prescribed. He denies any measured fevers, dizziness, neck pain/stiffness, trouble swallowing or breathing, chest pain or shortness of breath, dyspnea on exertion, orthopnea, palpitations, paresthesias, nausea/vomiting/diarrhea constipation, black or bloody stools, lower extremity edema or calf tenderness, recent travel or sick contacts, rashes or any other symptoms complaints or concerns at this time. MD complaint: Fevers/chills/body aches/shortness of breath/abdominal pain Onset (ago): day(s) (2) Related Data Home Medications Medication Instructions Recorded Confirmed albuterol sulfate 90 mcg/actuation 1 puff PO QID PRN wheezing 07/06/21 07/06/21 aerosol inhaler (ProAir HFA) betamethasone dipropionate 0.05 % 1 appl topical BID PRN Rash 07/06/21 07/06/21 topical cream fluoxetine 20 mg capsule 2 cap PO QAM 07/06/21 07/06/21 Previous Rx's Medication Instructions Recorded apixaban 5 mg tablet (Eliquis) 5 mg PO BID #90 tabs 07/09/21 oxycodone 5 mg tablet 5 mg PO Q6H PRN severe pain (scale 07/09/21 score 7-10) #14 tabs cabotegravir sodium 30 mg tablet 30 mg PO DAILY 30 days #30 tabs 01/15/22 rilpivirine HCl 25 mg tablet 25 mg PO DAILY 30 days #30 tabs 01/15/22 cabotegravir 600 mg/3 mL (200 600 mg (3 mL) IM ONCE 30 days #3 mL 01/29/22 mg/mL) IM suspension,extended release rilpivirine 900 mg/3 mL (300 900 mg (3 mL) IM ONCE 30 days #90 01/29/22 mg/mL) IM suspension, extended mL release cabotegravir ER 400 mg/2 See Rx Instructions IM .COMPLEX 30 03/31/22 mL-rilpivirine ER 600 mg/2mL IM days #4 mL suspension,ER (Cabenuva) cabotegravir ER 400 mg/2 See Rx Instructions IM .COMPLEX 30 03/31/22 mL-rilpivirine ER 600 mg/2mL IM days #4 mL suspension,ER (Cabenuva) cabotegravir ER 600 mg/3 See Rx Instructions IM .COMPLEX #6 03/31/22 mL-rilpivirine ER 900 mg/3mL IM mL suspension,ER cabotegravir ER 600 mg/3 See Rx Instructions IM .COMPLEX #6 05/14/22 mL-rilpivirine ER 900 mg/3mL IM mL suspension,ER (Cabenuva) naltrexone 50 mg tablet 50 mg PO DAILY 30 days #30 tabs 05/14/22 naltrexone microspheres 380 mg 380 mg IM Q4W 30 days #1 ea 05/14/22 intramuscular suspension,extended release (Vivitrol) cyclobenzaprine 10 mg tablet 10 mg PO Q8H #14 tabs 05/19/22 docusate sodium 100 mg capsule 100 mg PO BID PRN Constipation #14 05/19/22 (Colace) caps polyethylene glycol 3350 17 17 g PO BID #238 grams 05/19/22 gram/dose oral powder (Miralax) Allergies Allergy/AdvReac Type Severity Reaction Status Date / Time oxycodone AdvReac Itching Verified 05/19/22 13:59 Review of Systems Review of Systems: Constitutional : + subjective fevers/chills/fatigue/malaise, No Weight loss, No Night Sweats ENT/Mouth : No Hearing loss, No Ear Pain, No Nasal Congestion, No Sinus Pain, No Hoarseness, No sore throat, No Rhinorrhea, No Swallowing Difficulty Eyes: No Eye Pain, No Swelling, No Redness, No Foreign Body, No Discharge, No Vision Changes Cardiovascular : No Chest Pain, No SOB, No Dyspnea on Exertion, No Orthopnea, No Edema, No Palpitations Respiratory : No Cough, No Sputum, No Wheezing, No Smoke Exposure, No Dyspnea Gastrointestinal : No Nausea, No Vomiting, No Diarrhea, No Constipation, + abdominal Pain, No Hematochezia, No Melena Genitourinary : no irregular bleeding, No Dysuria, No Urinary Frequency, No Hematuria, No Urinary Incontinence, No Urgency, No Flank Pain, No Urinary Flow Changes, No Hesitancy Musculoskeletal : No joint pain, + Myalgias, No Joint Swelling Skin : No Skin Lesions, No rash Neuro : No Weakness, No Numbness, No Paresthesias, No Loss of Consciousness, No Dizziness, No Headache Psych : No Anxiety/Panic, No Depression, No SI/HI/AH/VH, No Social Issues, Heme/Lymph: No Bruising, No Bleeding,No Lymphadenopathy Endocrine : No Polyuria, No Polydipsia, No Temperature Intolerance Yes all other systems are reviewed and are negative [facility] Past Medical History Attestation statement: The following information was validated with the patient. Source: old records reviewed and nursing notes reviewed Medical History AIN grade II Alcohol abuse Alcohol use disorder, mild, abuse Asthma Colon cancer Colon polyps Condyloma acuminatum of anus Depression GERD (gastroesophageal reflux disease) HIV (human immunodeficiency virus infection) [place]-Schlatter/osteochondroses PTSD (post-traumatic stress disorder) Thrombosed hemorrhoids Social History Social History Household Members: Family Housing: House Do you presently have visiting nurse or other home services: No Patient Tobacco Use Status: Current everyday Tobacco user Tobacco use type: Cigarette Cigarette Packs Per Day: 0.5 Substance Use Type: Marijuana Advance Directives: Yes Advance Directives Information Provided: Yes Advance Directives on File: No service: No Physical Exam ED Vital Signs: Vital Signs - 24 hr 05/19/22 13:59 Temperature 99.2 F Pulse Rate 82 Respiratory Rate 18 Blood Pressure 122/73 Pulse Oximetry 99 Oxygen Delivery Method Room Air BMI result Body Mass Index 24.7 vital signs have been reviewed as normal and appeared to be correct. Blood pressure normal. Heart rate normal. Respiration rate normal. Temperature normal. Oxygen saturation normal. Appearance: Alert. Oriented X3. No acute distress. Head: Normal external exam. Normocephalic. Atraumatic. Eyes: PERRLA. EOMI. Conjunctiva and sclera normal. Eyelids normal. ENT: EAC normal. TM's Normal. Pharynx normal. Uvula midline. Moist mucous membranes. No lesions/ulcerations or masses noted on the tongue. Normal voice. No trismus noted. No drooling noted. No muffled voice noted. Neck: Normal inspection. Neck supple. FROM. No adenopathy. Thyroid Normal. No tracheal deviation noted. No crepitus is noted. No meningeal signs. No neck mass noted. No signs of trauma noted. CVS: Normal heart rate and rhythm. Heart sound normal. Pulses normal throughout. No murmurs/rales/gallops. Respiratory: No respiratory distress. Painless inspiration. Breath sounds normal. No wheezes/rales/rhonchi noted. Chest nontender. No crepitus is noted. No accessory muscle usage noted or decreased air movement noted. No signs of trauma. Abdomen: Soft and nontender. Bowel sounds normal in all 4 quadrants. No distention noted. No organomegaly noted. No visible injury noted. Back: No CVA tenderness. Full range of motion noted. Nontender. Patient neuro intact bilaterally and distally on all 4 extremities. Patient's reflexes intact bilaterally and distally on all 4 extremities. No rashes/lesion/induration/fluctuance or signs of infection noted. Skin: Skin warm and dry. Normal skin color. Normal skin turgor. No rashes/lesions/lacerations noted. Extremities: No lower extremity edema. No calf tenderness is noted. Extremities exhibit normal range of motion and nontender. Neuro: Oriented X 3. No motor deficit. No sensory deficit. Reflexes normal. Normal steady gait. No focal neuro deficits noted. CN's II-XII intact bilaterally? Vascular: + radial pulses/+ 2 distal pedal pulses/+2 dorsalis pedis b/l. Normal cap refill. No cyanosis noted to upper extremity nails and lower extremity toes nails. Course Course Course Narrative: 15pm - 36-year-old male with a past medical history of AIN grade II, colon cancer, condyloma acuminatum of anus, HIV currently on IM injections of antivirals Cabotegravir-rilpivirine being followed by infectious disease Dr. Pickens receive his last IM injection on 05/14/2022, asthma, depression, GERD, PTSD and alcohol abuse who was recently started on Naltrexone 05/14/2022 presenting to the ED with complaints of subjective fevers, chills, fatigue, malaise, body aches, head pressure, shortness of breath and abdominal pain for the past 2 days worse today. Reports that he was also started on antibiotics for UTI and is taking as prescribed. Plan: Will obtain labs, CT scan abdomen pelvis without IV contrast, UA, drug urine screen, obtain blood for tick-borne illnesses, obtain blood for syphilis, gonorrhea chlamydia urine, COVID swab and re-evaluate. Reevaluation(s) Reevaluation #1: - labs return patient with anemia which is new when compared to 05/10/2022 his hemoglobin hematocrit drop 2-4 points his hemoglobin hematocrit today are 13.3/39.8. BUN 6. Otherwise all other labs are within normal limits. UA within normal limits no evidence of UTI. Patient positive for marijuana negative for all other drugs. Negative for EtOH. Patient negative for syphilis. Patient negative for COVID. CT scan abdomen pelvis revealed constipation otherwise no other acute intra-abdominal processes. I did perform a stool occult which is pending at this time. Will DC home with muscle relaxants along with Colace and MiraLax and instructions to follow-up with his PCP for repeat blood work within 5 days due to his anemia which dropped in 9 days. I do not believe this is iron deficiency anemia as patient was not anemic before today. He denies any rectal bleeding at this time or black tarry stools. He also reported he had a colonoscopy in October of 2021 this year. Therefore will DC home with referral to GI as well. And instructions return if any new or worsening symptoms. Patient understands agrees with this plan. Time: 16:43 Medical Decision Making Medical Records Medical records reviewed: Yes I reviewed the patient's medical records. Lab Data Lab results reviewed: Yes I reviewed the patient's lab results. Result diagrams: 05/19/22 15:24 05/19/22 15:24 Labs: Lab Results 05/19/22 05/19/22 05/19/22 Range/Units 14:30 14:30 14:30 WBC (4.8-10.8) X10*3/uL RBC (4.60-5.80) X10*6/uL Hgb (14.0-18.0) g/dl Hct (42.0-52.0) % MCV (80.0-98.0) fL MCH (27.0-33.0) pg MCHC (31.0-36.0) g/dl RDW (11.0-16.0) % Plt Count (160-400) X10*3/uL MPV (9.4-12.4) fL Immature Gran % (Auto) (0.0-0.4) % Neut % (Auto) (45-73) % Lymph % (Auto) (20-40) % [place] % (Auto) (2-11) % Eos % (Auto) (0-4) % Baso % (Auto) (0-2) % Lymph # (Auto) (1.2-4.9) X10*3/uL [place] # (Auto) (0.1-1.2) X10*3/uL Eos # (Auto) (0.0-0.4) X10*3/uL Baso # (Auto) (0.0-0.2) X10*3/uL Abs Immat Gran (auto) (0.00-0.03) X10*3/uL Absolute Neuts (auto) (2.0-8.3) x10*3/uL Absolute Nucleated RBC (0.0-0.012) X10*3/uL Nucleated RBC % (auto) (0.0-0.2) /100WBC Sodium (135-145) mmol/L Potassium (3.3-5.1) mmol/L Chloride (96-108) mmol/L Carbon Dioxide (22-29) mmol/L Anion Gap (12-20) BUN (9-16) mg/dL Creatinine (0.5-1.4) mg/dL Estim Creat Clear Calc Estimated GFR Random Glucose (60-115) mg/dL Calcium (8.4-10.2) mg/dL Magnesium (1.6-2.6) mg/dL Total Bilirubin (0.0-1.0) mg/dL AST (5-37) U/L ALT (0-40) U/L Alkaline Phosphatase (39-117) U/L Total Creatine Kinase (38-174) U/L Total Protein (6.5-8.0) g/dL Albumin (3.5-5.0) g/dL Urine Color STRAW Urine Appearance CLEAR Urine pH 6.5 (5.0-8.0) Ur Specific [place] <= 1.005 (1.005-1.025) Urine Protein NEG (NEG-TRACE) MG/DL Urine Glucose (UA) NEG (NEG) MG/DL Urine Ketones NEG (NEG) MG/DL Urine Blood NEG (NEG) Urine Nitrite NEG (NEG) Ur Leukocyte Esterase NEG (NEG) Urine Opiates Screen Not Detected (Not Detect) Urine Fentanyl Screen Not Detected (Not Detect) Ur Barbiturates Screen Not Detected (Not Detect) Ur Phencyclidine Scrn Not Detected (Not Detect) Ur Amphetamines Screen Not Detected (Not Detect) U Benzodiazepines Scrn Not Detected (Not Detect) Urine Cocaine Screen Not Detected (Not Detect) U Marijuana (THC) Screen POSITIVE H (Not Detect) Ethyl Alcohol mg/dL T.pallidum Ab (EIA) (Nonreactive) COVID-19 (HUY) Negative (Negative) COVID-19 Clin Com See Note 05/19/22 05/19/22 05/19/22 Range/Units 15:23 15:24 15:24 WBC 7.2 (4.8-10.8) X10*3/uL RBC 4.14 L (4.60-5.80) X10*6/uL Hgb 13.3 L (14.0-18.0) g/dl Hct 39.8 L (42.0-52.0) % MCV 96.1 (80.0-98.0) fL MCH 32.1 (27.0-33.0) pg MCHC 33.4 (31.0-36.0) g/dl RDW 12.3 (11.0-16.0) % Plt Count 195 D (160-400) X10*3/uL MPV 10.7 (9.4-12.4) fL Immature Gran % (Auto) 0.4 (0.0-0.4) % Neut % (Auto) 70.8 (45-73) % Lymph % (Auto) 14.2 L (20-40) % [place] % (Auto) 9.1 (2-11) % Eos % (Auto) 5.4 H (0-4) % Baso % (Auto) 0.1 (0-2) % Lymph # (Auto) 1.0 L (1.2-4.9) X10*3/uL [place] # (Auto) 0.7 (0.1-1.2) X10*3/uL Eos # (Auto) 0.4 (0.0-0.4) X10*3/uL Baso # (Auto) 0.0 (0.0-0.2) X10*3/uL Abs Immat Gran (auto) 0.03 (0.00-0.03) X10*3/uL Absolute Neuts (auto) 5.1 (2.0-8.3) x10*3/uL Absolute Nucleated RBC 0.000 (0.0-0.012) X10*3/uL Nucleated RBC % (auto) 0.0 (0.0-0.2) /100WBC Sodium 138 (135-145) mmol/L Potassium 3.6 (3.3-5.1) mmol/L Chloride 102 (96-108) mmol/L Carbon Dioxide 25 (22-29) mmol/L Anion Gap 15 (12-20) BUN 6 L D (9-16) mg/dL Creatinine 1.00 (0.5-1.4) mg/dL Estim Creat Clear Calc 111.0 Estimated GFR > 60 Random Glucose 88 (60-115) mg/dL Calcium 9.1 D (8.4-10.2) mg/dL Magnesium 1.9 (1.6-2.6) mg/dL Total Bilirubin 0.4 (0.0-1.0) mg/dL AST 22 (5-37) U/L ALT 13 (0-40) U/L Alkaline Phosphatase 73 D (39-117) U/L Total Creatine Kinase 148 (38-174) U/L Total Protein 6.9 (6.5-8.0) g/dL Albumin 4.4 (3.5-5.0) g/dL Urine Color Urine Appearance Urine pH (5.0-8.0) Ur Specific [place] (1.005-1.025) Urine Protein (NEG-TRACE) MG/DL Urine Glucose (UA) (NEG) MG/DL Urine Ketones (NEG) MG/DL Urine Blood (NEG) Urine Nitrite (NEG) Ur Leukocyte Esterase (NEG) Urine Opiates Screen (Not Detect) Urine Fentanyl Screen (Not Detect) Ur Barbiturates Screen (Not Detect) Ur Phencyclidine Scrn (Not Detect) Ur Amphetamines Screen (Not Detect) U Benzodiazepines Scrn (Not Detect) Urine Cocaine Screen (Not Detect) U Marijuana (THC) Screen (Not Detect) Ethyl Alcohol < 10 mg/dL T.pallidum Ab (EIA) (Nonreactive) COVID-19 (HUY) (Negative) COVID-19 Clin Com 05/19/22 Range/Units 15:24 WBC (4.8-10.8) X10*3/uL RBC (4.60-5.80) X10*6/uL Hgb (14.0-18.0) g/dl Hct (42.0-52.0) % MCV (80.0-98.0) fL MCH (27.0-33.0) pg MCHC (31.0-36.0) g/dl RDW (11.0-16.0) % Plt Count (160-400) X10*3/uL MPV (9.4-12.4) fL Immature Gran % (Auto) (0.0-0.4) % Neut % (Auto) (45-73) % Lymph % (Auto) (20-40) % [place] % (Auto) (2-11) % Eos % (Auto) (0-4) % Baso % (Auto) (0-2) % Lymph # (Auto) (1.2-4.9) X10*3/uL [place] # (Auto) (0.1-1.2) X10*3/uL Eos # (Auto) (0.0-0.4) X10*3/uL Baso # (Auto) (0.0-0.2) X10*3/uL Abs Immat Gran (auto) (0.00-0.03) X10*3/uL Absolute Neuts (auto) (2.0-8.3) x10*3/uL Absolute Nucleated RBC (0.0-0.012) X10*3/uL Nucleated RBC % (auto) (0.0-0.2) /100WBC Sodium (135-145) mmol/L Potassium (3.3-5.1) mmol/L Chloride (96-108) mmol/L Carbon Dioxide (22-29) mmol/L Anion Gap (12-20) BUN (9-16) mg/dL Creatinine (0.5-1.4) mg/dL Estim Creat Clear Calc Estimated GFR Random Glucose (60-115) mg/dL Calcium (8.4-10.2) mg/dL Magnesium (1.6-2.6) mg/dL Total Bilirubin (0.0-1.0) mg/dL AST (5-37) U/L ALT (0-40) U/L Alkaline Phosphatase (39-117) U/L Total Creatine Kinase (38-174) U/L Total Protein (6.5-8.0) g/dL Albumin (3.5-5.0) g/dL Urine Color Urine Appearance Urine pH (5.0-8.0) Ur Specific [place] (1.005-1.025) Urine Protein (NEG-TRACE) MG/DL Urine Glucose (UA) (NEG) MG/DL Urine Ketones (NEG) MG/DL Urine Blood (NEG) Urine Nitrite (NEG) Ur Leukocyte Esterase (NEG) Urine Opiates Screen (Not Detect) Urine Fentanyl Screen (Not Detect) Ur Barbiturates Screen (Not Detect) Ur Phencyclidine Scrn (Not Detect) Ur Amphetamines Screen (Not Detect) U Benzodiazepines Scrn (Not Detect) Urine Cocaine Screen (Not Detect) U Marijuana (THC) Screen (Not Detect) Ethyl Alcohol mg/dL T.pallidum Ab (EIA) Nonreactive (Nonreactive) COVID-19 (HUY) (Negative) COVID-19 Clin Com Imaging Data CT scan abdomen pelvis without IV contrast: Attestation: I personally reviewed and interpreted this imaging study as follows: Radiologist's impression: FINDINGS: LUNG BASES: Visualized lung bases are clear.? LIVER, GALLBLADDER, AND BILIARY TREE: The liver is normal in size, shape, and attenuation. No focal hepatic lesion or biliary ductal dilatation is present. The gallbladder is unremarkable with no evidence of radiopaque gallstones, gallbladder wall thickening, or obvious pericholecystic inflammatory changes.? PANCREAS: Unremarkable.? SPLEEN: Unremarkable.? ADRENAL GLANDS: Unremarkable.? KIDNEYS AND URETERS: The kidneys are normal in size, shape, and attenuation. No hydronephrosis, hydroureter, or calculi seen. No perinephric stranding. ? BLADDER: There is mild posterior bladder wall thickening rest of the bladder appears unremarkable. Unremarkable.? GASTROINTESTINAL TRACT: There is scattered stool and gas seen throughout the colon without distention. The small bowel loops are normal caliber. The appendix is normal caliber. The stomach is nondistended.? ABDOMINAL WALL: No significant hernia is appreciated.? LYMPH NODES: Normal. VASCULAR: Unremarkable. PELVIC VISCERA: The prostate gland is normal size.? OSSEOUS STRUCTURES: No lytic or sclerotic process seen.? CT/CT abdomen pelvis wo con IMPRESSION: No acute intra-abdominal process seen. ? Mild constipation. ? No radiographic urolith or hydronephrosis.? ? Fleischner guidelines were followed. Discharge Plan Discharge Clinical Impression: Anemia, Constipation, Muscular aches Patient Disposition: Home, Self-Care Instructions: Constipation (ED), Anemia (ED) Additional Instructions: You have pending lab results if any are positive you will be contacted within 7-10 days. Or you can check the patient portal any results may be in there sooner before recall you. Return if any new or worsening symptoms. He should follow-up with her doctor within 5 days for repeat blood work due to your low H&H/anemia this is very important. If he develops any rectal bleeding return immediately. Prescriptions: New docusate sodium [Colace] 100 mg capsule 100 mg PO BID PRN (Reason: Constipation) Qty: 14 0RF polyethylene glycol 3350 [Miralax] 17 gram/dose powder 17 g PO BID Qty: 238 0RF cyclobenzaprine 10 mg tablet 10 mg PO Q8H Qty: 14 0RF No Action rilpivirine 900 mg/3 mL (300 mg/mL) suspension,extended release 900 mg IM ONCE 30 Days Qty: 90 2RF cabotegravir 600 mg/3 mL (200 mg/mL) suspension,extended release 600 mg IM ONCE 30 Days Qty: 3 2RF betamethasone dipropionate 0.05 % cream 1 appl topical BID PRN (Reason: Rash) albuterol sulfate [ProAir HFA] 90 mcg/actuation HFA aerosol inhaler 1 puff PO QID PRN (Reason: wheezing) fluoxetine 20 mg capsule 2 cap PO QAM Eliquis 5 mg tablet 5 mg PO BID Qty: 90 0RF Rx Instructions: take eliquis 5 mg (2 tablets 10 mg)twice daily for 6 days, followed by Eliquis 5 mg 1 tablet twice daily oxycodone 5 mg tablet 5 mg PO Q6H PRN (Reason: severe pain (scale score 7-10)) Qty: 14 0RF Cabenuva 400 mg/2 mL- 600 mg/2 mL suspension,extended release See Rx Instructions IM .COMPLEX 30 Days Qty: 4 0RF Rx Instructions: CABOTEGRAVIR: Inject 2 mL (400 mg) intramuscularly once monthly; RILPIVIRINE: Inject 2 mL (600 mg) intramuscularly once monthly IM Cabenuva 400 mg/2 mL- 600 mg/2 mL suspension,extended release See Rx Instructions IM .COMPLEX 30 Days Qty: 4 0RF Rx Instructions: CABOTEGRAVIR: Inject 2 mL (400 mg) intramuscularly once monthly; RILPIVIRINE: Inject 2 mL (600 mg) intramuscularly once monthly IM cabotegravir-rilpivirine 600 mg/3 mL- 900 mg/3 mL suspension,extended release See Rx Instructions IM .COMPLEX Qty: 6 6RF Rx Instructions: CABOTEGRAVIR: Inject 3 mL (600 mg) intramuscularly every 2 months; RILPIVIRINE: Inject 3 mL (900 mg) intramuscularly every 2 months IM cabotegravir sodium 30 mg tablet 30 mg PO DAILY 30 Days Qty: 30 0RF rilpivirine HCl 25 mg tablet 25 mg PO DAILY 30 Days Qty: 30 0RF Rx Instructions: administer with a meal naltrexone 50 mg tablet 50 mg PO DAILY 30 Days Qty: 30 0RF Cabenuva 600 mg/3 mL- 900 mg/3 mL suspension,extended release See Rx Instructions IM .COMPLEX Qty: 6 0RF Rx Instructions: CABOTEGRAVIR: Inject 3 mL (600 mg) intramuscularly every 2 months; RILPIVIRINE: Inject 3 mL (900 mg) intramuscularly every 2 months IM Vivitrol 380 mg suspension,extended rel recon 380 mg IM Q4W 30 Days Qty: 1 5RF Referrals: Mani Doe MD [Primary Care Provider] - 5 days (for repeat blood work for your anemia this is important ) Stand Alone Forms: Work/School Release
[2022-05-19 15:50] LABS: Ethanol < 10 mg/dL
[2022-05-19 15:54] LABS: Alanine Aminotransferase 13 U/L (0-40); Albumin Level 4.4 g/dL (3.5-5.0); Alkaline Phosphatase 73 U/L (39-117); Anion Gap 15 (12-20); Aspartate Amino Transferase 22 U/L (5-37); Bilirubin Total 0.4 mg/dL (0.0-1.0); Blood Urea Nitrogen 6 mg/dL (9-16); Calcium 9.1 mg/dL (8.4-10.2); Carbon Dioxide 25 mmol/L (22-29); Chloride 102 mmol/L (96-108); Estimated Glomerular Filt Rate > 60; Glucose Random 88 mg/dL (60-115); Magnesium 1.9 mg/dL (1.6-2.6); Potassium 3.6 mmol/L (3.3-5.1); Sodium 138 mmol/L (135-145); Total Protein 6.9 g/dL (6.5-8.0)
[2022-05-19 16:25] LABS: Syphilis Screen Nonreactive (Nonreactive)
[2022-05-19 16:47] LABS: OBS Int Ctl Valid YES; OBS1 NEGATIVE (NEGATIVE)
[2022-05-20 07:15] LABS: Source-Tick borne disease BLOOD
[2022-05-20 14:53] LABS: A. Phagocytphilium DNA,RT-PCR NOT DETECTED (NOT DETECTED); Babesia Microti DNA, RT-PCR NOT DETECTED (NOT DETECTED); Borrelia Miyamotoi,DNA RT-PCR NOT DETECTED (NOT DETECTED); E.Chaffeensis DNA RT-PCR NOT DETECTED (NOT DETECTED); Lyme(Borrelia ssp)DNA RT-PCR NOT DETECTED (NOT DETECTED)
== END 2022-05-19 17:39 | disposition home or self-care (01) ==
PROVIDERS: Physician Assistant Medical; Emergency Provider Internal Medicine; PCP Internal Medicine
DX: D64.9 Anemia, unspecified (principal); K59.00 Constipation, unspecified; M79.10 Myalgia, unspecified site; R10.9 Unspecified abdominal pain; Z20.822 Contact with and (suspected) exposure to COVID-19; R50.9 Fever, unspecified; B20 Human immunodeficiency virus [HIV] disease; F17.210 Nicotine dependence, cigarettes, uncomplicated; F12.90 Cannabis use, unspecified, uncomplicated; Z85.038 Personal history of other malignant neoplasm of large intestine; Z79.899 Other long term (current) drug therapy
CPT/HCPCS: 36415; 74176; 80053; 80307; 81003; 82077; 82272; 82550; 83735; 85025; 86780; 87491; 87591; 87635; 87798; 87801; 99283; 99284

== ENCOUNTER 2022-06-16 11:53 | Outpatient (REF) | payer OTHER, SELFPAY ==
[2022-06-16 13:14] LABS: Alanine Aminotransferase 17 U/L (0-40); Albumin Level 4.7 g/dL (3.5-5.0); Alkaline Phosphatase 95 U/L (39-117); Aspartate Amino Transferase 22 U/L (5-37); Bilirubin Direct 0.3 mg/dL (0.0-0.5); Bilirubin Total 0.7 mg/dL (0.0-1.0); Total Protein 7.4 g/dL (6.5-8.0)
[2022-06-18 11:53] LABS: Absolute CD3 Count 2269 cells/uL (840-3060); Absolute CD4 Count 735 cells/uL (490-1740); Absolute CD8 Count 1516 cells/uL (180-1170); Absolute Lymphocytes 2731 cells/uL (850-3900); CD4 CD8 Ratio 0.48 (0.86-5.00); Percent CD3 Cells 83 % (57-85); Percent CD4 Cells 27 % (30-61); Percent CD8 Cells 56 % (12-42)
[2022-06-18 12:06] LABS: HIV RNA PCR Qn Copies <20 DETECTED copies/mL (NOT DETECTED); HIV RNA PCR Qn Log Copies <1.30 DETECTED (NOT DETECTED)
== END 2022-06-16 11:54 | disposition home or self-care (01) ==
LOC: HO.LAB 11:53
PROVIDERS: PCP Internal Medicine; Visit Provider Internal Medicine
DX: B20 Human immunodeficiency virus [HIV] disease (principal)
CPT/HCPCS: 36415; 80076; 86359; 86360; 87536

== ENCOUNTER → 2022-06-23 10:57 | Outpatient (BNVA) | payer OTHER, SELFPAY | PROVIDERS: PCP Internal Medicine; Visit Provider Internal Medicine | DX: Z51.81 Encounter for therapeutic drug level monitoring (principal); F10.10 Alcohol abuse, uncomplicated | CPT/HCPCS: 99212; J2315 ==

== ENCOUNTER → 2022-07-09 10:03 | Outpatient (BNVA) | payer OTHER, SELFPAY | PROVIDERS: PCP Internal Medicine; Visit Provider Internal Medicine | DX: B20 Human immunodeficiency virus [HIV] disease (principal); F10.10 Alcohol abuse, uncomplicated | CPT/HCPCS: 99212 ==

== ENCOUNTER → 2022-07-16 11:55 | Outpatient (BNVA) | payer OTHER, SELFPAY | PROVIDERS: PCP Internal Medicine; Visit Provider Internal Medicine | DX: B20 Human immunodeficiency virus [HIV] disease (principal) | CPT/HCPCS: 96372; 99212 ==

== ENCOUNTER → 2022-09-10 10:25 | Outpatient (BNVA) | payer OTHER, SELFPAY | PROVIDERS: Visit Provider Internal Medicine | DX: B20 Human immunodeficiency virus [HIV] disease (principal) | CPT/HCPCS: 96372; 99212 ==

== ENCOUNTER → 2023-04-08 13:09 | Outpatient (BNVA) | payer OTHER, SELFPAY | PROVIDERS: Visit Provider Internal Medicine | DX: B20 Human immunodeficiency virus [HIV] disease (principal) | CPT/HCPCS: 99212 ==

== ENCOUNTER 2023-04-27 13:43 | Outpatient (REF) | payer OTHER, SELFPAY ==
[2023-04-30 09:33] LABS: Absolute CD3 Count 938 cells/uL (840-3060); Absolute CD4 Count 287 cells/uL (490-1740); Absolute CD8 Count 666 cells/uL (180-1170); Absolute Lymphocytes 1276 cells/uL (850-3900); CD4 CD8 Ratio 0.43 (0.86-5.00); Percent CD3 Cells 73 % (57-85); Percent CD4 Cells 22 % (30-61); Percent CD8 Cells 52 % (12-42)
[2023-04-30 15:03] LABS: HIV RNA PCR Qn Copies <20 DETECTED copies/mL (NOT DETECTED); HIV RNA PCR Qn Log Copies <1.30 DETECTED (NOT DETECTED)
== END 2023-04-27 13:44 | disposition home or self-care (01) ==
LOC: HO.LAB 13:43
PROVIDERS: Visit Provider Internal Medicine
DX: B20 Human immunodeficiency virus [HIV] disease (principal)
CPT/HCPCS: 36415; 86359; 86360; 87536

== ENCOUNTER 2023-05-18 14:09 | Outpatient (AMB) | payer OTHER, SELFPAY ==
--- NOTE | 2023-05-18 14:09 | MHC.OFFVIS ---
Intake Vital Signs 05/18/23 14:23 Height 6 ft Weight 79.379 kg BMI 23.7 BP 140/80 H Pulse 74 Pulse Oximetry (%) 98 Intake Visit Reasons: cabenuva inj. Intake Note: Pt here for Cabenuva inj. Dr. Pickens stated she reviewed the labs prior to inj and ok'd giving injection today Allergies oxycodone Adverse Reaction (Verified 05/18/23 14:24) Itching PFSH Medical History AIN grade II Alcohol abuse Alcohol use disorder, mild, abuse Asthma Colon cancer Colon polyps Condyloma acuminatum of anus Depression GERD (gastroesophageal reflux disease) HIV (human immunodeficiency virus infection) [place]-Schlatter/osteochondroses PTSD (post-traumatic stress disorder) Thrombosed hemorrhoids Social History Household Members: Family Housing: House Do you presently have visiting nurse or other home services: No Patient Tobacco Use Status: Current everyday Tobacco user Tobacco use type: Cigarette Cigarette Packs Per Day: 0.5 Substance Use Type: Marijuana service: No Physical Exam Vital Signs: Last Vital Signs Pulse 74 05/18/23 14:23 BP 140/80 H 05/18/23 14:23 Pulse Ox 98 05/18/23 14:23 BMI result Body Mass Index 23.7 Coding Diagnoses
[2023-05-18 14:23] VITALS: BP 140/80; PULSE 74; O2SAT 98; BMI 23.7
--- NOTE | 2023-05-18 14:38 | AM.OFFVISNUR ---
Intake Vital Signs 05/18/23 14:23 Height 6 ft Weight 79.379 kg BMI 23.7 BP 140/80 H Pulse 74 Pulse Oximetry (%) 98 Intake Visit Reasons: cabenuva inj. Intake Note: Pt here for Cabenuva injection today. Dr. Pickens reviewed labs and stated ok to give injection today. Allergies oxycodone Adverse Reaction (Verified 05/18/23 14:24) Itching Nursing Note Pt here for Cabenuva injection today. Dr. Pickens reviewed labs and stated ok to give injection today. Injection given without incidence Office Meds cabotegravir-rilpivirine 600 mg/3 mL- 900 mg/3 mL ER Performing Provider: Fabby Pickens MD Administered by: Rosalia Vo RN on 05/18/23 15:01 Dose Route Admin Location Lot Number Expiration Date NDC [employer] 6 mL IM ventral gluteal UP4C 04/09/25 73698-675-54 [facility] Coding Level of Care Code Established Pt Est Pt Level 1 (11265) Patient Type Established History Problem Focused Exam Problem Focused Medical Decision Making Straight Forward Diagnoses Time Spent (min) 15 Assessment & Plan Assessment & Plan Orders: Orders AMB Cabotegravir/Rilpivirine Injection - Patient Supplied Today B20 - Human immunodeficiency virus [HIV] disease
== END 2023-05-18 15:47 | disposition home or self-care (01) ==
PROVIDERS: Visit Provider Internal Medicine
DX: B20 Human immunodeficiency virus [HIV] disease (principal)

== ENCOUNTER → 2023-05-18 14:09 | Outpatient (BNVA) | payer OTHER, SELFPAY | PROVIDERS: Visit Provider Internal Medicine | DX: B20 Human immunodeficiency virus [HIV] disease (principal) | CPT/HCPCS: 96372; 99211; J0741 ==